=== PATIENT | male | born 1945 | race Caucasian/White ===

== ENCOUNTER 2016-12-25 14:00 | Inpatient (IN) | payer OTHER ==
--- NOTE | 2016-12-24 22:00 | NUR ---
Rounds Patient resting in bed, awake. Denies any acute distress or pain. Breathing even and unlabored. IV site patent/clean/dry. Patient continue to be febrile, medicated patient per MD order and cooling measures taken. Dr. Urban doing rounds on patient. Call light in hand, fall precautions in place. Will continue to monitor. Addendum: 12/26/16 at 0127 by Abhishek Zaidi RN Notes for Date: 12/25/16
[~2016-12-25] VITALS: Ht 170.2 cm; Wt 73.0 kg
[2016-12-25 14:08] VITALS: BP 87/58; PULSE 130; RESP 16; TEMP 98.6; O2SAT 98
--- NOTE | 2016-12-25 14:45 | NUR ---
Pt in ER room 4, report received from TRACEY Coyle. Pt AAOx4, even and non-labored respirations, BBS clear. Pt states that he has been running a fever x 4 weeks every day. states that last fever was at 1300 and states fever was "104." Pt has been taking Tylenol and Benadryl for symptoms. Last dose of Tylenol was at noon today. Pt has multiple myeloma, dx in 2013. Pt takes Pomalyst for cancer. Current temp 99.9. Pt denies c/o pain or discomfort and no needs verbalized at this time.
[2016-12-25 14:48] LABS: BASOPHILS % (AUTO) 0.2 % (0.0-2.0); EOSINOPHILS % (AUTO) 0.8 % (0.0-4.0); HEMATOCRIT 24.3 % (36-54); LYMPHOCYTES # (AUTO) 0.5 K/uL (1.0-5.5); LYMPHOCYTES % (AUTO) 9.2 % (20.5-51.5); MEAN CORPUSCULAR HEMOGLOBIN 31 pg (27-31); MEAN CORPUSCULAR HGB CONC 33 % (32-36); MEAN CORPUSCULAR VOLUME 93 fL (79.0-98.0); MONOCYTES # (AUTO) 0.7 K/uL (0.0-1.0); MONOCYTES % (AUTO) 12.1 % (1.7-9.3); NEUTROPHILS # (AUTO) 4.8 K/uL (1.8-7.7); NEUTROPHILS % (AUTO) 77.7 % (40.0-70.0); PLATELET COUNT (AUTO) 401 K/uL (130-430); RED BLOOD CELL COUNT(AUTO) 2.62 MIL/uL (4.2-6.2); WHITE BLOOD COUNT (AUTO) 5.9 K/uL (4.8-10.8)
--- NOTE | 2016-12-25 14:50 | NUR ---
Dr. Meek at bedside to assess pt.
[2016-12-25 14:56] LABS: INR 1.2 (0.80-1.20)
[2016-12-25 15:04] LABS: ANION GAP 13 (5-15); CALCIUM 8.6 mg/dL (8.4-11.0); CHLORIDE 102 mmol/L (98-107); CREATININE 1.59 mg/dL (0.55-1.30); GLUCOSE 113 mg/dL (70-99); POTASSIUM 3.7 mmol/L (3.5-5.1); SODIUM SERUM 136 mmol/L (136-145); UREA NITROGEN, BLOOD 13 mg/dL (8-21)
[2016-12-25 15:09] LABS: ALANINE AMINOTRANSFERASE 39 U/L (12-78); ASPARTATE AMINOTRANSFERASE 27 U/L (10-37); TOTAL BILIRUBIN 0.4 mg/dL (0.0-1.0); TOTAL PROTEIN, SERUM 8.9 g/dL (6.4-8.3)
--- NOTE | 2016-12-25 15:25 | NUR ---
Pt report given to TRACEY Gonzalez.
[2016-12-25] MEDS ORDERED: NACL 0.9% 1,000 ML IV ONE ×2 (15:30)
[2016-12-25] MEDS ORDERED: HYDR-1189 PO (15:34)
[2016-12-25] MEDS ORDERED: POMA4CAP PO (15:34)
[2016-12-25] MEDS ORDERED: ACET-2165 PO (15:34)
[2016-12-25] MEDS ORDERED: FLUC100T41 PO (15:34)
[2016-12-25] MEDS ORDERED: MECL12.584 PO (15:34)
[2016-12-25] MEDS ORDERED: SIMV20TA2 PO (15:34)
[2016-12-25] MEDS ORDERED: FAMO40TA35 PO (15:34)
[2016-12-25] MEDS ORDERED: TAMS-11 PO (15:34)
[2016-12-25] MEDS ORDERED: CALC-112 PO (15:34)
[2016-12-25] MEDS ORDERED: DIPH25CA83 PO (15:34)
[2016-12-25] MEDS ORDERED: ASPI-1063 PO (15:34)
[2016-12-25] MEDS ORDERED: DEC4 PO (15:34)
--- NOTE | 2016-12-25 15:35 | NUR ---
Medication reconciliation completed with information provided by . Any prior medication reconciliation on file was reviewed and corrected.
[2016-12-25 16:05] LABS: BILIRUBIN,URINE NEGATIVE (NEGATIVE); BLOOD, URINE 1+ (NEGATIVE); CLARITY/URINE SL CLOUDY (CLEAR); COLOR,URINE YELLOW (YELLOW); GLUCOSE,URINE NEGATIVE (NEGATIVE); KETONES,URINE NEGATIVE (NEGATIVE); LEUKOCYTE ESTERASE ,URINE NEGATIVE (NEGATIVE); NITRITE, URINE NEGATIVE (NEGATIVE); PH,URINE 5.5 (5.0-8.0); PROTEIN URINE 1+ (NEGATIVE); UROBILINOGEN,URINE 0.2 (0.2-1.0)
[2016-12-25 16:31] LABS: BACTERIA,URINE RARE /HPF (None Seen); FINE GRANULAR CASTS,URINE 0-10 /LPF (None Seen); WBC,URINE 0-3 /HPF (0-3)
--- NOTE | 2016-12-25 16:39 | NUR ---
Dr. Meek at bedside updating patient and family
--- NOTE | 2016-12-25 18:05 | NUR ---
Patient will be admitted to care of Dr. Urban. Admitted to tele unit. Will go to room 135/123. Belongings list completed. Summary report printed. Report given to TRACEY Smith.
--- NOTE | 2016-12-25 18:07 | NUR ---
ADMISSION NOTE Received patient from ER via gurney. Patient admitted with diagnosis of Sepsis. Patient is awake, alert, oriented X 3. Patient oriented to hospital room, call light, toileting, pain management and safety-teach back done. Patient informed that Les will be his nurse and that their room number is 123 A. Personal belongings checked and Belongings List documented. Call light within reach.
[2016-12-25 18:18] VITALS: BP 133/68; PULSE 105; RESP 18; TEMP 97.8; O2SAT 98
--- NOTE | 2016-12-25 18:35 | NUR ---
Consultation Paged Reason for consultation: Unknown Source of Infection Was consult called: Yes Person who was notified: Shahrzad Consulting Physician: Dr Fair; Dr Aparicio is on-call for Dr Fair Underwriting Clerk Specialty: ID Underwriting Clerk
--- NOTE | 2016-12-25 18:41 | NUR ---
FAMILY AT BEDSIDE. WILL ENDORSE FOR NOC NURSE.
[2016-12-25] MEDS ORDERED: LEVOFLOXACIN 500 MG/D5W 100 ML IV ONE (19:00)
[2016-12-25 20:00] VITALS: BP 137/70; PULSE 105; RESP 18; TEMP 99.3; O2SAT 99
--- NOTE | 2016-12-25 20:00 | NUR ---
Initial Notes Received patient laying in bed, awake, alert, oriented, family at bedside. Patient denies any acute distress or pain at this time. Patient exhibiting fever, patient stated he's been febrile on/off for 2months, MD aware. Breathing even and unlabored on room air. IV site patent/clean/dry. Needs addressed. Educated patient and family on use of call light for assistance and fall precautions, all verbalized understanding. Call light in hand, will continue to monitor.
[2016-12-25] MEDS ORDERED: HYDROcodone/ACETAMIN 5-325 MG TAB (NORCO/ VICODIN) PO PRN (21:30)
[2016-12-25] MEDS ORDERED: ACETAMINOPHEN 500 MG TABLET PO PRN (21:45)
[2016-12-25] MEDS: VANCOMYCIN HCL 1,250 MG in NS 250 ML IV SCH (21:47)
[2016-12-25] MEDS: NACL 0.9% 1,000 ML IV SCH (21:49)
[2016-12-25] MEDS: ACETAMINOPHEN 325 MG TABLET PO PRN (21:58)
[2016-12-25] MEDS: MICAFUNGIN SODIUM 100 MG in NS 100 ML IV SCH (23:20)
[2016-12-26] VITALS: BP 132/68; PULSE 78; RESP 18; TEMP 101.6; O2SAT 98
--- NOTE | 2016-12-26 | NUR ---
Rounds Patient resting in bed with eyes closed, easily aroused upon nurse entering room. Patient denies any acute distress or pain. Breathing even and unlabored. IV site patent/clean/dry. Patient remains febrile, cooling measures continued, MD aware. Call light in hand, will continue to monitor for changes and safety.
--- NOTE | 2016-12-26 02:00 | NUR ---
Rounds Patient resting in bed, awake. Patient denies any acute distress or pain. Breathing even and unlabored. IV site patent/clean/dry. Assisted patient to bathroom for BM. Needs addressed. Call light in hand, fall precautions in place. Will continue to monitor.
[2016-12-26 04:00] VITALS: BP 132/76; PULSE 68; RESP 17; TEMP 99.3; O2SAT 98
--- NOTE | 2016-12-26 04:00 | NUR ---
Rounds Patient resting in bed with eyes closed, easily aroused upon nurse entering room. Patient denies any acute distress or pain. Vital signs stable. Breathing even and unlabored. IV site patent/clean/dry. Call light in hand, fall precautions in place. Will continue to monitor.
--- NOTE | 2016-12-26 06:35 | NUR ---
Closing Notes Patient resting in bed with eyes closed, easily aroused. Patient denies any acute distress or pain at this time. Breathing even and unlabored on room air. IV site patent/clean/dry, no S/S infection/infiltration noted. Needs addressed throughout shift. Call light in hand, fall precautions in place. Will continue to monitor for changes and safety, and endorse all patient care/needs to oncoming nurse.
--- NOTE | 2016-12-26 07:10 | NUR ---
NRSG: RECEIVED PATIENT, AWAKE,ALERT AND ORIENTED X 4. RESPIRATION EVEN AND UNLABORED. AFEBRILE. , LUNGS CLEAR BILATERAL. ON ROOM AIR AND O2 SAT. 96%, . HAD IVF ON PROGRESS AND THE SITE ON LEFT FOREARM INTACT AND INPLACED , NO S/S OF INFILTRATION. NO C/O OF PAIN .CALL LIGHT WITHIN REACH.
[2016-12-26 07:25] LABS: BASOPHILS % (AUTO) 0.3 % (0.0-2.0); EOSINOPHILS # (AUTO) 0.1 K/uL (0.0-0.4); EOSINOPHILS % (AUTO) 1.4 % (0.0-4.0); LYMPHOCYTES # (AUTO) 0.5 K/uL (1.0-5.5); LYMPHOCYTES % (AUTO) 9.9 % (20.5-51.5); MEAN CORPUSCULAR HEMOGLOBIN 31 pg (27-31); MEAN CORPUSCULAR HGB CONC 33 % (32-36); MEAN CORPUSCULAR VOLUME 93 fL (79.0-98.0); MONOCYTES # (AUTO) 0.8 K/uL (0.0-1.0); MONOCYTES % (AUTO) 16.4 % (1.7-9.3); NEUTROPHILS # (AUTO) 3.3 K/uL (1.8-7.7); PLATELET COUNT (AUTO) 317 K/uL (130-430); RED BLOOD CELL COUNT(AUTO) 2.13 MIL/uL (4.2-6.2); RED CELL DISTRIBUTION WIDTH 16.5 % (9.0-15.0); WHITE BLOOD COUNT (AUTO) 4.7 K/uL (4.8-10.8)
[2016-12-26 07:30] LABS: ALANINE AMINOTRANSFERASE 30 U/L (12-78); ALBUMIN 1.6 g/dL (3.4-4.8); ANION GAP 12 (5-15); ASPARTATE AMINOTRANSFERASE 22 U/L (10-37); CHLORIDE 106 mmol/L (98-107); CREATININE 1.28 mg/dL (0.55-1.30); GLUCOSE 103 mg/dL (70-99); POTASSIUM 3.7 mmol/L (3.5-5.1); SODIUM SERUM 138 mmol/L (136-145); TOTAL BILIRUBIN 0.4 mg/dL (0.0-1.0); TOTAL PROTEIN, SERUM 7.5 g/dL (6.4-8.3); UREA NITROGEN, BLOOD 10 mg/dL (8-21)
--- NOTE | 2016-12-26 07:30 | NUR ---
RESULT: LAB ([facility]) CALLED FOR HGB &HEMATOCRIT RESULT . AND DR. RENEE WAS CALLED AT 0745 AND 0815 . WAITING FOR THE RETURN CALL AND CALLED BACK AT 0830 WITH NEW ORDERS.
[2016-12-26 07:32] LABS: HEMATOCRIT 19.8 % (36-54); HEMOGLOBIN 6.5 g/dL (14.0-18.0)
[2016-12-26 08:00] VITALS: BP 121/63; PULSE 115; RESP 18; TEMP 98.9; O2SAT 96
--- NOTE | 2016-12-26 09:39 | NUR ---
ROUNDS: SEEN AND EXAMINED BY DR. RENEE WITH NEW ORDERS.
[2016-12-26] MEDS: ASPIRIN 81 MG TABLET(ECOTRIN) PO SCH (10:02)
[2016-12-26] MEDS: FLUCONAZOLE 100 MG TABLET (DIFLUCAN) PO SCH (10:02)
[2016-12-26] MEDS: TAMSULOSIN HCL 0.4 MG CAP PO SCH ×2 (10:03→20:47)
[2016-12-26] MEDS: NAPROXEN 250 MG TABLET PO SCH ×2 (10:03→20:48)
[2016-12-26] MEDS: FAMOTIDINE 20 MG TABLET PO SCH (10:05)
[2016-12-26] MEDS: NACL 0.9% 1,000 ML IV SCH ×2 (10:08→14:00)
[2016-12-26] MEDS: ACETAMINOPHEN 325 MG TABLET PO PRN ×2 (11:26→23:31)
--- NOTE | 2016-12-26 11:26 | NUR ---
TEMP: TYLENOL 650 MG PO GIVEN FOR TEMP 101.2 . COOLING MEASURE PROVIDED. ICE PACK TO ARMPIT AND GROIN APPLIED.
[2016-12-26 12:22] VITALS: BP 121/70; PULSE 116; RESP 17; TEMP 101.2; O2SAT 98
--- NOTE | 2016-12-26 12:26 | NUR ---
TEMP: 99.8 RECHECKED
--- NOTE | 2016-12-26 13:25 | NUR ---
BLOOD TRANSFUSION: IST UNIT OF BLOOD TRANSFUSION STARTED AND CHECKED BY 2 LICENSE AT THE BEDSIDE . PRIOR V/S TAKEN AND RECORDED TO BLOOD TRANSFUSION SHEET.
--- NOTE | 2016-12-26 13:40 | NUR ---
POST 15 MIN. BLOOD TRANSFUSION: V/S TAKEN POST 15 MIN. V/S TAKEN AND RECORDED ON THE BLOOD TRANSFUSION SHEET. NO BLOOD TRANSFUSION REACTION NOTED. WILL CONTINUE TO MONITOR.
--- NOTE | 2016-12-26 14:00 | NUR ---
ACTIVITY: RESTING ON BED AND FAMILY AT THE BEDSIDE. NO PAIN , NO FEVER. CALL LIGHT WITHIN REACH.
--- NOTE | 2016-12-26 16:00 | NUR ---
ACTIVITY: STILL ON BLOOD TRANSFUSION AND NO PAIN AND CALL LIGHT WITHIN REACH.
[2016-12-26 16:12] VITALS: BP 126/57; PULSE 74; RESP 18; TEMP 98.4; O2SAT 98
--- NOTE | 2016-12-26 17:30 | NUR ---
BLOOD: IST UNIT BLOOD TRANSFUSION FINFISHED WITH NO BLOOD TRANSFUSION REACTION. V/S RECORDED ON BLOOD TRANSFUSION SHEET.
--- NOTE | 2016-12-26 17:55 | NUR ---
BLOOD: 2ND UNIT PRBC STARTED BY LIO -CHARGE NURSE, V/S TAKEN AND RECORDED ON THE BLOOD TRANSFUSION RECORD.
--- NOTE | 2016-12-26 18:10 | NUR ---
V/S: SET OF V/S POST 15 MINUTES DONE AND RECORDED ON THE BLOOD TRANSFUSION RECORD. NO BLOOD TRANSFUSION REACTION .WILL CONTINUE TO ASSESS PATIENT WHILE ON BLOOD TRANSFUSION
--- NOTE | 2016-12-26 19:50 | NUR ---
CLOSING: GAVE REPORT AT THE BEDSIDE TO NIGHT NURSE AND PATIENT IS STILL ON BLOOD TRANSFUSION OF THE 2ND UNIT, AWAKE,ALERT AND ORIENTED, NO BLOOD REACTION ,NO FEVER. FAMILY AT THE BEDSIDE. CALL LIGHT WITHIN REACH.
[2016-12-26 20:00] VITALS: BP 133/61; PULSE 77; RESP 20; TEMP 98.2; O2SAT 96
--- NOTE | 2016-12-26 20:00 | NUR ---
Initial Notes Received patient laying in bed, awake, alert, oriented, family at bedside. Patient currently receiving 2nd unit of PRBC. Patient denies any acute distress or pain at this time. Vital signs stable. Breathing even and unlabored on room air. IV site patent/clean/dry. Needs addressed. Educated patient and family on use of call light for assistance and fall precautions, all verbalized understanding. Call light in hand, will continue to monitor.
--- NOTE | 2016-12-26 20:40 | NUR ---
2nd Unit PRBC Completed PRBC completed, no adverse reaction noted. Vital signs stable. Patient denies any distress. Will continue to monitor.
[2016-12-26] MEDS: LEVOFLOXACIN 250 MG/D5W 50 ML IV SCH (20:47)
[2016-12-26] MEDS: DIPHENHYDRAMINE HCL 25 MG CAPSULE PO SCH (20:48)
[2016-12-26] MEDS: SIMVASTATIN 20 MG TABLET PO SCH (20:48)
--- NOTE | 2016-12-26 22:00 | NUR ---
Rounds and New IV Patient resting in bed, awake. Denies any acute distress or pain at this time. Breathing even and unlabored. Current IV site occluded at times, discontinued. New IV sites started left forearm #22's x2, good blood return noted, patent/clean/dry. ABX restarted. Needs addressed, call light in hand. Will continue to monitor.
[2016-12-26] MEDS: MICAFUNGIN SODIUM 100 MG in NS 100 ML IV SCH (22:08)
[2016-12-26] MEDS ORDERED: VANCOMYCIN HCL 1000 MG/VIAL IV ONE (22:55)
[2016-12-26] MEDS ORDERED: VANCOMYCIN HCL 500 MG/VIAL IV ONE (22:56)
[2016-12-26] MEDS: VANCOMYCIN HCL 1,250 MG in NS 250 ML IV SCH (23:13)
[2016-12-27] VITALS (7 sets, daily range): BP systolic 143–153; BP diastolic 68–88; PULSE 80–99; RESP 16–18; TEMP 96.8–100; O2SAT 95–99; Ht 170.2 cm; Wt 73.0 kg
--- NOTE | 2016-12-27 | NUR ---
Rounds and Fever Patient resting in bed with eyes closed, easily aroused. Patient denies any acute distress or pain at this time. Breathing even and unlabored. IV sites patent/clean/dry. Medicated patient for elevated temperature per MD orders. Call light in hand, fall precautions in place. Will continue to monitor.
--- NOTE | 2016-12-27 02:00 | NUR ---
Rounds Patient resting in bed with eyes closed. No acute distress noted. Breathing even and unlabored. IV site patent/clean/dry. Call light in hand, fall precautions in place. Will continue to monitor.
--- NOTE | 2016-12-27 04:00 | NUR ---
Rounds Patient resting in bed with eyes closed. No acute distress noted. Breathing even and unlabored. Will continue to monitor.
[2016-12-27] MEDS: NACL 0.9% 1,000 ML IV SCH ×3 (05:42→20:00)
--- NOTE | 2016-12-27 06:43 | NUR ---
Closing Notes Patient resting in bed with eyes closed, easily aroused. Patient denies any distress or pain at this time. Breathing even and unlabored. IV site patent/clean/dry, no S/S infection/infiltration noted. Vital signs stable. Needs addressed throughout shift. Call light in hand, fall precautions in place. Will continue to monitor for changes and safety, and endorse all patient care/needs to oncoming nurse.
[2016-12-27 06:54] LABS: ALANINE AMINOTRANSFERASE 37 U/L (12-78); ALBUMIN 1.6 g/dL (3.4-4.8); ANION GAP 9 (5-15); ASPARTATE AMINOTRANSFERASE 33 U/L (10-37); CALCIUM 8.3 mg/dL (8.4-11.0); CHLORIDE 111 mmol/L (98-107); CREATININE 1.11 mg/dL (0.55-1.30); GLUCOSE 101 mg/dL (70-99); POTASSIUM 3.9 mmol/L (3.5-5.1); SODIUM SERUM 142 mmol/L (136-145); TOTAL BILIRUBIN 0.7 mg/dL (0.0-1.0); TOTAL PROTEIN, SERUM 7.8 g/dL (6.4-8.3); UREA NITROGEN, BLOOD 8 mg/dL (8-21)
[2016-12-27 07:01] LABS: BASOPHILS % (AUTO) 0.2 % (0.0-2.0); EOSINOPHILS # (AUTO) 0.1 K/uL (0.0-0.4); EOSINOPHILS % (AUTO) 3.7 % (0.0-4.0); HEMATOCRIT 24.7 % (36-54); HEMOGLOBIN 8.1 g/dL (14.0-18.0); LYMPHOCYTES # (AUTO) 0.5 K/uL (1.0-5.5); LYMPHOCYTES % (AUTO) 12.7 % (20.5-51.5); MEAN CORPUSCULAR HEMOGLOBIN 30 pg (27-31); MEAN CORPUSCULAR HGB CONC 33 % (32-36); MEAN CORPUSCULAR VOLUME 91 fL (79.0-98.0); MONOCYTES # (AUTO) 0.4 K/uL (0.0-1.0); MONOCYTES % (AUTO) 11.7 % (1.7-9.3); NEUTROPHILS # (AUTO) 2.7 K/uL (1.8-7.7); NEUTROPHILS % (AUTO) 71.7 % (40.0-70.0); PLATELET COUNT (AUTO) 306 K/uL (130-430); RED CELL DISTRIBUTION WIDTH 16.5 % (9.0-15.0); WHITE BLOOD COUNT (AUTO) 3.7 K/uL (4.8-10.8)
--- NOTE | 2016-12-27 07:55 | NUR ---
INITIAL NOTE Received pt in bed, no s/s of distress or sob noted, pt has no c/o pain at this time, pt in stable condition. Pt alert and oriented x4. Bed at lowest position, call light within reach, will continue to monitor pt for any changes, fall precautions in place.
[2016-12-27] MEDS ORDERED: DECADRON 4 MG TABLET PO SCH (09:00)
[2016-12-27] MEDS: ASPIRIN 81 MG TABLET(ECOTRIN) PO SCH (09:18)
[2016-12-27] MEDS: FLUCONAZOLE 100 MG TABLET (DIFLUCAN) PO SCH (09:18)
[2016-12-27] MEDS: TAMSULOSIN HCL 0.4 MG CAP PO SCH ×2 (09:18→21:27)
[2016-12-27] MEDS: FAMOTIDINE 20 MG TABLET PO SCH (09:18)
[2016-12-27] MEDS: NAPROXEN 250 MG TABLET PO SCH ×2 (09:19→21:27)
--- NOTE | 2016-12-27 10:00 | NUR ---
CONSULT ID SEPSIS DR BIANCHI [phone] S/W [facility] OFFICE @ [id number]
--- NOTE | 2016-12-27 10:23 | NUR ---
Rounds Pt in bed, no s/s of distress or sob noted, pt has no c/o pain at this time, pt in stable condition, pt resting comfortably, will continue to monitor pt for any changes.
[2016-12-27] MEDS ORDERED: DIATR MEGLU/DIATRIZ SOD 30 ML SOLUTION PO ONE (10:54)
--- NOTE | 2016-12-27 14:30 | NUR ---
Sputum Was notified by lab that sputum culture sent was contaminated, new order for sputum culture and informed pt that a new sputum needs to be provided as the sputum provided was contaminated, pt verbalized understanding. Specimen cup left at bedside with pt.
[2016-12-27] MEDS: LEVOFLOXACIN 250 MG/D5W 50 ML IV SCH (18:14)
[2016-12-27] MEDS: VANCOMYCIN HCL 1,250 MG in NS 250 ML IV SCH (19:14)
--- NOTE | 2016-12-27 19:45 | NUR ---
PM ASSESSMENT PT. A/OX4, VITAL SIGNS STABLE, PT. IS AFEBRILE, NO DISTRESS NOTED, DENIES PAIN, UPDATED WITH PLAN OF CARE, ENCOURAGED PT. TO USE CALL LIGHT FOR ASSISTANCE, CALL LIGHT WITHIN REACH, WILL CONTINUE TO MONITOR.
[2016-12-27] MEDS: DIPHENHYDRAMINE HCL 25 MG CAPSULE PO SCH (21:27)
[2016-12-27] MEDS: MICAFUNGIN SODIUM 100 MG in NS 100 ML IV SCH (21:27)
[2016-12-27] MEDS: SIMVASTATIN 20 MG TABLET PO SCH (21:27)
--- NOTE | 2016-12-27 21:30 | NUR ---
RN ROUNDS PT. AMBULATED TO THE BATHROOM WITH SPECIAL FORCES SPECIALIST, NOTED WITH SLOW, STEADY GAIT. ASSISTED SAFELY BACK INTO BED. PT. TOLERATED ACTIVITY WELL.
--- NOTE | 2016-12-27 23:13 | NUR ---
RN ROUNDS PT. RESTING QUIETLY, VITAL SIGNS STABLE, NO DISTRESS NOTED, DENIES PAIN, CALL LIGHT WITHIN REACH, WILL CONTINUE TO MONITOR.
[2016-12-28] VITALS (7 sets, daily range): BP systolic 148–156; BP diastolic 71–92; PULSE 63–92; RESP 16–20; TEMP 96.9–99; O2SAT 94–99
--- NOTE | 2016-12-28 01:15 | NUR ---
RN ROUNDS PT. RESTING QUIETLY, VITAL SIGNS STABLE, NO DISTRESS NOTED, DENIES PAIN, CALL LIGHT WITHIN REACH, WILL CONTINUE TO MONITOR.
--- NOTE | 2016-12-28 03:00 | NUR ---
RN ROUNDS PT. RESTING QUIETLY, VITAL SIGNS STABLE, NO DISTRESS NOTED, DENIES PAIN, CALL LIGHT WITHIN REACH, WILL CONTINUE TO MONITOR.
--- NOTE | 2016-12-28 05:00 | NUR ---
RN ROUNDS PT. RESTING QUIETLY, VITAL SIGNS STABLE, NO DISTRESS NOTED, DENIES PAIN, CALL LIGHT WITHIN REACH, WILL CONTINUE TO MONITOR.
[2016-12-28] MEDS: NACL 0.9% 1,000 ML IV SCH ×2 (06:29→16:50)
--- NOTE | 2016-12-28 06:30 | NUR ---
AMBULATE TO BATHROOM ASSISTED PT. TO AMBULATE TO BATHROOM, NOTED WITH SLOW, STEADY GAIT, PT. ABLE TO VOID URINE AND HAVE A BOWEL MOVEMENT. ASSISTED SAFELY BACK INTO BED, PT. TOLERATED ACTIVITY WELL, IV ACCESS PATENT AND BENIGN.
--- NOTE | 2016-12-28 08:38 | NUR ---
AM ROUNDS Patient received, alert awake and oriented x4. VSS. Patient denies pain at this time. Patient afebrile. IV site patent intact and infusing fluids as ordered. Patient tolerated breakfast well, denies nausea and vomiting at this time. Patient able to ambulate to bathroom, voiding without difficulty. Plan of care discussed, patient verbalized understanding. No further needs at this time. Safety and fall precautions in place, call light within reach, will continue to monitor.
[2016-12-28] MEDS: FAMOTIDINE 20 MG TABLET PO SCH (08:52)
[2016-12-28] MEDS: ASPIRIN 81 MG TABLET(ECOTRIN) PO SCH (08:53)
[2016-12-28] MEDS: TAMSULOSIN HCL 0.4 MG CAP PO SCH ×2 (08:53→21:34)
[2016-12-28] MEDS: NAPROXEN 250 MG TABLET PO SCH ×2 (08:53→21:33)
--- NOTE | 2016-12-28 09:25 | NUR ---
Patient ambulated to bathroom, minimal assistance. Encouraged to call for assistance, patient verbalized understanding. Will continue to monitor. Safety and fall precautions in place, call light within reach, side rails upx3.
--- NOTE | 2016-12-28 10:05 | NUR ---
ROUNDS Patient ambulated to bathroom, gait steady. Patient denies pain at this time. Family at bedside. No further needs at this time. Safety and fall precautions in place, call light within reach. Will continue to monitor.
--- NOTE | 2016-12-28 12:12 | NUR ---
ROUNDS/WOUND CARE Patient resting in bed at this time. Patient stated he had a wound on his buttock that was "irritating" him. Verified from patient and family that verified wound was present on admission. Pictures taken and in chart. WOUND CARE Cleansed with normal saline, pat dry, barrier cream and foam dressing applied.
--- NOTE | 2016-12-28 14:34 | NUR ---
ROUNDS Educated patient on importance of repositioning, patient verbalized understanding and returned demonstration. IVF infusing as ordered. Patient denies pain at this time. Safety and fall precautions in place, call light within reach. Will continue to monitor. Family at bedside.
[2016-12-28] MEDS: LEVOFLOXACIN 250 MG/D5W 50 ML IV SCH (18:35)
--- NOTE | 2016-12-28 19:45 | NUR ---
PM NOTE: PATIENT ALERT. DENIES PAIN. RESPIRATIONS ARE EVEN/UNLABORED TO AUSCULTATION. UP TO BATHROOM WITH ASSIST. PASSED FLATUS NO BM AT THIS TIME. FAMILY MEMBER AT BEDSIDE. CALL LIGHT WITHIN REACH.
[2016-12-28] MEDS: VANCOMYCIN HCL 1,250 MG in NS 250 ML IV SCH (19:56)
[2016-12-28] MEDS: SIMVASTATIN 20 MG TABLET PO SCH (21:33)
[2016-12-28] MEDS: DIPHENHYDRAMINE HCL 25 MG CAPSULE PO SCH (21:33)
--- NOTE | 2016-12-28 22:25 | NUR ---
rounds: Aroused easily with verbal stimuli. Denies discomfort. Gait steady with ambulation to bathroom and back to bed. Bed in low position. Call light in reach.
[2016-12-28] MEDS: MICAFUNGIN SODIUM 100 MG in NS 100 ML IV SCH (22:49)
--- NOTE | 2016-12-29 00:25 | NUR ---
rounds: Restful. No s/s of distress. Respirations unlabored and regular. Call light within reach.
[2016-12-29 01:23] VITALS: BP 155/96; PULSE 73; RESP 18; TEMP 98.7; O2SAT 98
--- NOTE | 2016-12-29 02:25 | NUR ---
Rounds: Up to bathroom to void. Voiding without difficulty. Gait remains steady. Denies discomfort at this time. Back to bed. Call light within reach.
[2016-12-29 04:00] VITALS: BP 154/89; PULSE 77; RESP 17; TEMP 98; O2SAT 97
--- NOTE | 2016-12-29 04:25 | NUR ---
Rounds: No s/s of discomfort while resting in bed. Respirations remain regular and unlabored. Bed in low position. Call light within reach.
[2016-12-29] MEDS: NACL 0.9% 1,000 ML IV SCH (06:15)
--- NOTE | 2016-12-29 06:28 | NUR ---
closing note: awake and alert. Denies pain. Voided 4x throughout shift. Call light within reach and bed in low position.
[2016-12-29 08:00] VITALS: BP 146/86; PULSE 96; RESP 18; TEMP 97.8; O2SAT 96
--- NOTE | 2016-12-29 08:18 | NUR ---
OPENING NOTE PATIENT IS SITTING UP EATING BREAKFAST. DENIES ANY PAIN, NO SOB OR DISTRESS. CALL LIGHT WITHIN REACH. TOLERATING DIET WELL.
[2016-12-29] MEDS: NAPROXEN 250 MG TABLET PO SCH (08:34)
[2016-12-29] MEDS: FAMOTIDINE 20 MG TABLET PO SCH (08:34)
[2016-12-29] MEDS: ASPIRIN 81 MG TABLET(ECOTRIN) PO SCH (08:34)
[2016-12-29] MEDS: TAMSULOSIN HCL 0.4 MG CAP PO SCH (08:34)
--- NOTE | 2016-12-29 09:50 | NUR ---
DR LAM IN TO SEE PATIENT. DC HOME AFTER BONE SCAN
[2016-12-29 10:14] LABS: BASOPHILS % (AUTO) 0.1 % (0.0-2.0); EOSINOPHILS % (AUTO) 0.1 % (0.0-4.0); HEMATOCRIT 26.7 % (36-54); HEMOGLOBIN 8.9 g/dL (14.0-18.0); LYMPHOCYTES # (AUTO) 0.5 K/uL (1.0-5.5); LYMPHOCYTES % (AUTO) 5.7 % (20.5-51.5); MEAN CORPUSCULAR HEMOGLOBIN 31 pg (27-31); MEAN CORPUSCULAR HGB CONC 33 % (32-36); MEAN CORPUSCULAR VOLUME 93 fL (79.0-98.0); MONOCYTES # (AUTO) 0.6 K/uL (0.0-1.0); MONOCYTES % (AUTO) 7.1 % (1.7-9.3); NEUTROPHILS # (AUTO) 7.4 K/uL (1.8-7.7); PLATELET COUNT (AUTO) 407 K/uL (130-430); RED BLOOD CELL COUNT(AUTO) 2.89 MIL/uL (4.2-6.2); RED CELL DISTRIBUTION WIDTH 15.9 % (9.0-15.0); WHITE BLOOD COUNT (AUTO) 8.5 K/uL (4.8-10.8)
[2016-12-29 11:11] VITALS: BP 153/86; PULSE 82; RESP 18; TEMP 97.4; O2SAT 99
[2016-12-29 12:10] VITALS: BP 136/74; PULSE 90; RESP 18; TEMP 98; O2SAT 96
--- NOTE | 2016-12-29 12:22 | NUR ---
DR DUNCAN IN TO SEE PATIENT. VALATREX PRESCRIPTION WRITTEN. INSTRUCTIONS ON ALL PRESCRIBED MEDICATIONS AND DISCHARGE CARE PLAN GIVEN TO PATIENT, SPOUSE AND SON. VERBALIZED UNDERSTANDING. IV DC'D AND PRESSURE DRESSING APPLIED. PATIENT DRESSED IN HOME CLOTHING. ALL PERSONAL BELONGINGS ACCOUNTED FOR AND SENT HOME WITH PATIENT.
[2016-12-29 14:10] LABS: % FREE PSA 21.5 % (.); FREE PSA 0.56 ng/mL; PROSTATE SPECIFIC AG TOTAL 2.6 ng/mL (0.0-4.0)
[2017-01-02 09:12] LABS: COCCIDIOIDES AB COMPLEMENT FIX Negative (Neg:<1:2)
--- NOTE | 2017-01-04 14:07 | NUR ---
Discharge Follow Up Phone Call SYSTEMS INTEGRATION ENGINEER phoned patient, , and spoke with patient's , Gina. Gina stated that patient was feeling better and had started back on his prednisone. Patient also filled the prescriptions given to him and is taking them as directed. Patient attended his follow up appointment with his PCP, Dr Okeefe, on 12/31 and with his oncologist, Dr Craft, on 01/03/17. Discussed the difficulties managing multiple myeloma. No other questions or concerns.
[2017-01-12 14:19] LABS: CRYPTOCOCCUS AG, SERUM NEGATIVE (NEGATIVE)
== END 2016-12-29 14:31 | disposition home or self-care (01) | DRG 871 ==
LOC: SED 14:00 → SMU 17:47 → STU 18:05 → SMU 12-26 22:13
PROC: 30233N1 Transfusion of Nonautologous Red Blood Cells into Peripheral Vein, Percutaneous Approach (ICD-10-PCS; principal; 2016-12-26)
DX: A41.9 Sepsis, unspecified organism (principal); J18.9 Pneumonia, unspecified organism; C90.00 Multiple myeloma not having achieved remission; D63.0 Anemia in neoplastic disease; E78.5 Hyperlipidemia, unspecified; I10 Essential (primary) hypertension; B95.8 Unspecified staphylococcus as the cause of diseases classified elsewhere; Z88.0 Allergy status to penicillin; Z85.820 Personal history of malignant melanoma of skin; Z79.899 Other long term (current) drug therapy
CPT/HCPCS: 36415; 71010; 71250-TC; 78306; 80053; 81000-TC; 83605; 83880; 84153; 84484; 85025; 85610-TC; 85651-TC; 86480; 86635; 86694; 86886; 86900; 86901; 86920; 87040-TC; 87070-TC; 87205-TC; 87385; 87497; 87899; 93005; 93306; 96360; 96361; 99285; A9503; J1956; J2248; J3370; J7030; J7040; J7050; J8540; P9021; Q0163; Q9964

== ENCOUNTER 2017-01-20 12:04 | Inpatient (IN) | payer OTHER ==
[~2017-01-20] VITALS: Ht 172.7 cm; Wt 71.7 kg
[2017-01-20 12:04] VITALS: BP 116/64; PULSE 110; RESP 24; TEMP 96.8; O2SAT 98
[~2017-01-20 12:04] MED LIST: ACET-2165 PO; ASPI-1063 PO; CALC-112 PO; DEC4 PO; DIPH25CA83 PO; FAMO40TA35 PO; FLUC100T41 PO; HYDR-1189 PO; MECL12.584 PO; POMA4CAP PO; SIMV20TA2 PO; TAMS-11 PO
--- NOTE | 2017-01-20 12:04 | NUR ---
JOSEPH ALMARAZ from home. Placed in room 06. Placed on groundwater monitoring technician, blood pressure machine and pulse oximeter. To gown for exam. Side rails up.
--- NOTE | 2017-01-20 12:10 | NUR ---
Dr. Recinos at bedside for evaluation
[2017-01-20] MEDS ORDERED: NS 500 ML IV ONE (12:30)
[2017-01-20 12:47] LABS: BASOPHILS % (AUTO) 0.4 % (0.0-2.0); EOSINOPHILS # (AUTO) 0.2 K/uL (0.0-0.4); EOSINOPHILS % (AUTO) 4.6 % (0.0-4.0); HEMATOCRIT 30.4 % (36-54); HEMOGLOBIN 10.3 g/dL (14.0-18.0); LYMPHOCYTES # (AUTO) 0.3 K/uL (1.0-5.5); LYMPHOCYTES % (AUTO) 6.3 % (20.5-51.5); MEAN CORPUSCULAR HEMOGLOBIN 30 pg (27-31); MEAN CORPUSCULAR HGB CONC 34 % (32-36); MEAN CORPUSCULAR VOLUME 90 fL (79.0-98.0); MONOCYTES # (AUTO) 0.4 K/uL (0.0-1.0); MONOCYTES % (AUTO) 9.6 % (1.7-9.3); NEUTROPHILS # (AUTO) 3.3 K/uL (1.8-7.7); NEUTROPHILS % (AUTO) 79.1 % (40.0-70.0); PLATELET COUNT (AUTO) 298 K/uL (130-430); RED BLOOD CELL COUNT(AUTO) 3.39 MIL/uL (4.2-6.2); RED CELL DISTRIBUTION WIDTH 16.7 % (9.0-15.0); WHITE BLOOD COUNT (AUTO) 4.2 K/uL (4.8-10.8)
[2017-01-20 13:00] LABS: INR 1.1 (0.80-1.20); PROTHROMBIN TIME 11.7 SECS (9.5-12.5)
[2017-01-20 13:04] LABS: ANION GAP 8 (5-15); CALCIUM 8.1 mg/dL (8.4-11.0); CHLORIDE 104 mmol/L (98-107); CREATININE 1.21 mg/dL (0.55-1.30); GLUCOSE 117 mg/dL (70-99); SODIUM SERUM 134 mmol/L (136-145); UREA NITROGEN, BLOOD 30 mg/dL (8-21)
[2017-01-20 13:06] LABS: POTASSIUM 4.4 mmol/L (3.5-5.1)
--- NOTE | 2017-01-20 13:18 | NUR ---
Pt placed on bedpan with watery stool. Bottom cleansed, clean chux placed. Redness noted to sacral area. aware.
[2017-01-20 13:20] LABS: ALANINE AMINOTRANSFERASE 75 U/L (12-78); ALBUMIN 2.5 g/dL (3.4-4.8); ASPARTATE AMINOTRANSFERASE 31 U/L (10-37); FREE T4 (FREE THYROXINE) 1.1 ng/dL (0.6-1.6); TOTAL BILIRUBIN 0.4 mg/dL (0.0-1.0); TOTAL PROTEIN, SERUM 8.4 g/dL (6.4-8.3)
[2017-01-20 13:22] LABS: ALCOHOL, BLOOD < 3 mg/dL (<10)
--- NOTE | 2017-01-20 13:30 | NUR ---
Back from radiology, tolerated well.
--- NOTE | 2017-01-20 14:30 | NUR ---
Patient is at rest in bed asleep. Patient awoken to check VS, states he feels ok.
[2017-01-20] MEDS ORDERED: LEVOFLOXACIN 500 MG/D5W 100 ML IV ONE (14:45)
--- NOTE | 2017-01-20 14:56 | NUR ---
Telemetry strip printed, interpreted as SINUS RHYTHM at 95 bpm, and placed on the chart.
--- NOTE | 2017-01-20 15:12 | NUR ---
# 14 FR In and Out catheter with use of sterile technique. Immediate return of 200 ml dark yellow urine noted. Urine sample collected and sent to lab. Pt tolerated procedure well. Patient unable to toilet self.
--- NOTE | 2017-01-20 15:16 | NUR ---
Patient will be admitted to care of Dr. Hall. Admitted to tele unit. Will go to room 131. Summary report printed. Report given to RN. Transfer to tele via ACLS protocol. Licensed nurse present. IV present no signs or symptoms of infiltration.
--- NOTE | 2017-01-20 15:30 | NUR ---
ADMIT NOTE Received pt from ER to the floor with a diagnosis of RULE OUT SEPSIS. Admission process initiated. patient oriented to pain management, safety and call light-teach back done.
[2017-01-20 15:35] VITALS: BP 114/65; PULSE 82; RESP 18; TEMP 98.5; O2SAT 98
[2017-01-20 15:53] LABS: BILIRUBIN,URINE NEGATIVE (NEGATIVE); BLOOD, URINE NEGATIVE (NEGATIVE); CLARITY/URINE SL HAZY (CLEAR); COLOR,URINE YELLOW (YELLOW); GLUCOSE,URINE NEGATIVE (NEGATIVE); KETONES,URINE NEGATIVE (NEGATIVE); LEUKOCYTE ESTERASE ,URINE NEGATIVE (NEGATIVE); NITRITE, URINE NEGATIVE (NEGATIVE); PROTEIN URINE TRACE (NEGATIVE); UROBILINOGEN,URINE 0.2 (0.2-1.0)
[2017-01-20 16:06] VITALS: BP 114/65; PULSE 89; RESP 18; TEMP 98.5; O2SAT 98
[2017-01-20 16:19] LABS: BARBITURATE, URINE NEGATIVE (NEG <=200); BENZODIAZEPINE, URINE NEGATIVE (NEG <=150); CANNABINOID, URINE NEGATIVE (NEG <=50); COCAINE, URINE NEGATIVE (NEG <=150); METHAMPHETAMINES SCREEN,URINE NEGATIVE (NEG <=500); OPIATE, URINE NEGATIVE (NEG <=100); PHENCYCLIDINE SCREEN,URINE NEGATIVE (NEG <=25); UR TRICYCLIC ANTIDEPRESSANTS NEGATIVE (NEG <=300); URINE AMPHETAMINE NEGATIVE (NEG <=500); URINE METHADONE NEGATIVE (NEG <=200); URINE OXYCODONE SCREEN NEGATIVE (NEG <=100); URINE PROPOXYPHENE SCREEN NEGATIVE (NEG <=300)
[2017-01-20 16:20] LABS: BACTERIA,URINE FEW /HPF (None Seen); RBC,URINE 0-3 /HPF (0-3)
[2017-01-20 16:21] LABS: MUCUS,URINE 2+ /LPF (None Seen); URINE AMORPHOUS URATE 2+ /HPF (None Seen)
--- NOTE | 2017-01-20 16:45 | NUR ---
DR ALEXANDRE AT BEDSIDE FOR DR LAM, ASSESSED PATIENT AND RECEIVED HISTORY AND PHYSICAL. RECEIVED NEW ORDERS. WILL CARRY OUT. PT IN ED, SAFETY MEASURES IN PLACE, PT ORIENTED TO USE OF CALL LIGHT AND IT IS PLACED WITHIN REACH, FAMILY AT BEDSIDE.
[2017-01-20] MEDS ORDERED: ACETAMINOPHEN 500 MG TABLET PO PRN (17:15)
[2017-01-20] MEDS: NACL 0.9% 1,000 ML IV SCH (18:09)
--- NOTE | 2017-01-20 19:00 | NUR ---
CLOSING NOTE ALL NEEDS ATTENDED TO THROUGH OUT SHIFT. PT LAYING IN BED, AWAKE, ALERT AND ORIENTED, FAMILY AT BEDSIDE, NO COMPLAINT OF PAIN, DISCOMFORT, NAUSEA, VOMITING, PT DID HAVE 3 EPISODES OF DIARRHEA SINCE ADMIT, STOOL SENT TO LAB AWAITING RESULTS. IV INFUSING TO LEFT WRIST AT ORDERED RATE, SITE PATENT AND INTACT, SCDS IN PLACE, SAFETY MEASURES IN PLACE, CALL LIGHT WITHIN REACH, SIDE RAILS UP X2, BED IN LOW POSITION AND LOCKED, WILL ENDORSE CARE TO FOLLOWING SHIFT.
--- NOTE | 2017-01-20 19:23 | NUR ---
OPENING NOTE Pt. and bedside report received from day shift nurse. Pt. is awake, alert and oriented. No s/s of acute distress. IVF infusing as ordered. SCDS present. Angelica Arteaga at bedside providing incontinence care. Family at bedside. Plan of care discussed. Safety and fall precautions are in place. Encouraged pt. and family to use call light for needs. Will continue to monitor.
[2017-01-20 20:00] VITALS: BP 115/65; PULSE 83; RESP 20; TEMP 98; O2SAT 92
[2017-01-20] MEDS: ONDANSETRON HCL 4 MG/2 ML VIAL IVP PRN (20:57)
--- NOTE | 2017-01-20 21:06 | NUR ---
NAUSEA/VOMITING/ALLERGY BAND APPLIED Pt. c/o nausea, vomitted moderate amount of orange-brown emesis. HOB elevated to prevent aspiration. Zofran IVP was administered as ordered PRN. Educated pt. regarding med and s/e. Pt. and family at bedside verbalized understanding. Allergy band applied. Safety and fall precautions in place. Call light to right hand. Will continue to monitor.
--- NOTE | 2017-01-20 22:41 | NUR ---
ROUNDS Pt. is resting quietly in bed with eyes closed. No s/s of acute distress. Pt.'s spouse at bedside with no needs at this time as well. Safety and fall precautions in place. Call light to right hand. Encouraged family to use call light for needs. Will continue to monitor.
[2017-01-20 23:30] VITALS: BP 121/68; PULSE 80; RESP 16; TEMP 98.2; O2SAT 98
--- NOTE | 2017-01-21 | NUR ---
ROUNDS Late entry due to pt. care. Pt. is resting quietly in bed with eyes closed. Respirations are even and unlabored with no s/s of acute distress. Spouse at bedside. Bed alarm on. Will continue to monitor.
--- NOTE | 2017-01-21 03:03 | NUR ---
BEDPAN Pt. was assisted to bedpan by JACOB Pina. Denies any pain or discomfort at this time. Safety and fall precautions in place. Call light on lap. Spouse at bedside. Will continue to monitor.
[2017-01-21] MEDS: NACL 0.9% 1,000 ML IV SCH ×3 (03:36→13:23)
--- NOTE | 2017-01-21 04:38 | NUR ---
ROUNDS Pt. is resting quietly in bed with eyes closed. Respirations are even and unlabored with no s/s of acute distress. Spouse at bedside. Safety and fall precautions in place. Call light to right hand. Will continue to monitor.
[2017-01-21 05:26] VITALS: BP 114/64; PULSE 82; RESP 17; TEMP 97.7
[2017-01-21 06:32] LABS: BASOPHILS % (AUTO) 0.2 % (0.0-2.0); EOSINOPHILS # (AUTO) 0.1 K/uL (0.0-0.4); EOSINOPHILS % (AUTO) 2.2 % (0.0-4.0); HEMATOCRIT 29.4 % (36-54); HEMOGLOBIN 10.2 g/dL (14.0-18.0); LYMPHOCYTES # (AUTO) 0.5 K/uL (1.0-5.5); LYMPHOCYTES % (AUTO) 12.3 % (20.5-51.5); MEAN CORPUSCULAR HEMOGLOBIN 30 pg (27-31); MEAN CORPUSCULAR HGB CONC 35 % (32-36); MEAN CORPUSCULAR VOLUME 88 fL (79.0-98.0); MONOCYTES # (AUTO) 0.6 K/uL (0.0-1.0); MONOCYTES % (AUTO) 13.7 % (1.7-9.3); NEUTROPHILS # (AUTO) 2.9 K/uL (1.8-7.7); NEUTROPHILS % (AUTO) 71.6 % (40.0-70.0); PLATELET COUNT (AUTO) 264 K/uL (130-430); RED BLOOD CELL COUNT(AUTO) 3.34 MIL/uL (4.2-6.2); RED CELL DISTRIBUTION WIDTH 16.9 % (9.0-15.0); WHITE BLOOD COUNT (AUTO) 4.1 K/uL (4.8-10.8)
[2017-01-21] MEDS: ONDANSETRON HCL 4 MG/2 ML VIAL IVP PRN (06:33)
[2017-01-21 06:34] LABS: ALANINE AMINOTRANSFERASE 56 U/L (12-78); ANION GAP 4 (5-15); ASPARTATE AMINOTRANSFERASE 18 U/L (10-37); CALCIUM 7.2 mg/dL (8.4-11.0); CHLORIDE 109 mmol/L (98-107); CREATININE 1.15 mg/dL (0.55-1.30); GLUCOSE 99 mg/dL (70-99); POTASSIUM 3.8 mmol/L (3.5-5.1); SODIUM SERUM 136 mmol/L (136-145); TOTAL BILIRUBIN 0.4 mg/dL (0.0-1.0); TOTAL PROTEIN, SERUM 7.3 g/dL (6.4-8.3); UREA NITROGEN, BLOOD 29 mg/dL (8-21)
--- NOTE | 2017-01-21 07:42 | NUR ---
ZOFRAN/CLOSING NOTES Late entry due to pt. care. Pt. was given zofran IVP as ordered PRN for nausea and vomiting. Moderate amount of emesis noted. All needs met throughout shift. Safety precautions in place. Spouse at bedside. Endorsed care and bedside report given to day shift nurse.
--- NOTE | 2017-01-21 07:47 | NUR ---
Nutrition Update Blayne Scale 15 noted. Pt admitted for nausea, vomiting, tachycardia, r/o sepsis. Diet: clear liquid BMI: 24 kg/m2 RD to follow per nutrition care standards.
[2017-01-21 07:54] VITALS: BP 126/67; PULSE 80; RESP 17; TEMP 98.7; O2SAT 97
--- NOTE | 2017-01-21 07:54 | NUR ---
Initial Note Received pt in bed, no s/s of distress or sob noted, pt has no c/o pain, pt in stable condition. Pt aaox3, verbal. IV catheter patent, no signs of infection or infiltration noted, running iv fluids as ordered. Bed at lowest position, call light within reach, will continue to monitor pt for any change, fall precautions in place, noted no nausea or vomiting at this time.
[2017-01-21] MEDS: PANTOPRAZOLE SODIUM 40 MG/VIAL (PROTONIX) IVP SCH (08:53)
--- NOTE | 2017-01-21 09:54 | NUR ---
ROUNDS Dr Yue webb, aware of patients condition, new orders written. Spoke with and pt about poc, both verbalized understanding
--- NOTE | 2017-01-21 10:06 | NUR ---
Consult Called consult spoke to Gayathri.
--- NOTE | 2017-01-21 10:46 | NUR ---
ROUNDS Pt in bed, no s/s of distress or sob noted, pt has no c/o pain, pt in stable condition, pt resting comfortably. Will continue to monitor pt for any changes.
[2017-01-21 11:40] VITALS: Ht 172.7 cm; Wt 71.7 kg
[2017-01-21 13:12] VITALS: BP 122/68; PULSE 82; RESP 17; TEMP 98; O2SAT 98
[2017-01-21] MEDS: LEVOFLOXACIN 500 MG/D5W 100 ML IV SCH (15:56)
[2017-01-21 16:04] VITALS: BP 124/66; PULSE 79; RESP 18; TEMP 97.9; O2SAT 99
--- NOTE | 2017-01-21 18:05 | NUR ---
CLOSING NOTE Pt in bed, no s/s of distress or sob noted, pt has no c/o pain, pt in stable condition. Pt aaox3, verbal. IV catheter patent, no signs of infection or infiltration noted, running iv fluids as ordered. Bed at lowest position, call light within reach, will endorse care of pt to incoming nurse, fall precautions in place, noted no nausea or vomiting at this time. Pt npo for abd ultrasound around 1930.
--- NOTE | 2017-01-21 19:30 | NUR ---
PM ROUNDS: abdominal ultrasound being done at bedside on change of shift. awake, alert and oriented. at bedside.call light within reach.
[2017-01-21 19:57] VITALS: BP 107/62; PULSE 72; RESP 20; TEMP 97.2; O2SAT 98
--- NOTE | 2017-01-21 20:00 | NUR ---
RN Notes: abdominal ultrasound completed, clear liquid given as ordered and tolerated well. no nausea nor vomiting. instructed to call nurse if help needed. call light within reach.
--- NOTE | 2017-01-21 22:00 | NUR ---
RN ROUNDS: pt. sleeping when checked and pt. at bedside. IVF patent.
--- NOTE | 2017-01-22 00:44 | NUR ---
ROUNDS: pt. sound asleep. in no distress when made rounds.
[2017-01-22 00:53] VITALS: BP 110/59; PULSE 74; RESP 12; TEMP 97.1; O2SAT 97
[2017-01-22] MEDS: NACL 0.9% 1,000 ML IV SCH ×2 (00:57→11:11)
--- NOTE | 2017-01-22 02:14 | NUR ---
ROUNDS: remain asleep when checked.
--- NOTE | 2017-01-22 02:35 | NUR ---
RN NOTES: pt. called and need help to void, uses urinal. no complaints of pain when asked.
[2017-01-22 03:38] VITALS: BP 108/55; PULSE 69; RESP 13; TEMP 97.1; O2SAT 98
--- NOTE | 2017-01-22 05:22 | NUR ---
ROUNDS: still sleeping when made rounds.
--- NOTE | 2017-01-22 06:10 | NUR ---
RN NOTES: pt. awake , noted to have dry throat, offered hot tea and tolerated well, no nausea.
[2017-01-22 06:40] LABS: EOSINOPHILS # (AUTO) 0.1 K/uL (0.0-0.4); EOSINOPHILS % (AUTO) 3.8 % (0.0-4.0); HEMATOCRIT 28.4 % (36-54); HEMOGLOBIN 9.1 g/dL (14.0-18.0); LYMPHOCYTES # (AUTO) 0.6 K/uL (1.0-5.5); LYMPHOCYTES % (AUTO) 17.7 % (20.5-51.5); MEAN CORPUSCULAR HEMOGLOBIN 29 pg (27-31); MEAN CORPUSCULAR HGB CONC 32 % (32-36); MEAN CORPUSCULAR VOLUME 91 fL (79.0-98.0); MONOCYTES # (AUTO) 0.5 K/uL (0.0-1.0); NEUTROPHILS # (AUTO) 2.3 K/uL (1.8-7.7); NEUTROPHILS % (AUTO) 62.5 % (40.0-70.0); PLATELET COUNT (AUTO) 229 K/uL (130-430); RED BLOOD CELL COUNT(AUTO) 3.13 MIL/uL (4.2-6.2); RED CELL DISTRIBUTION WIDTH 16.8 % (9.0-15.0); WHITE BLOOD COUNT (AUTO) 3.5 K/uL (4.8-10.8)
--- NOTE | 2017-01-22 06:40 | NUR ---
CLOSING NOTES: pt. pretty awake, still feels weak. IVF patent, denies any pain. informed about change of shift. cardiac pattern remains sinus rhythm.will endorse to incoming shift.
[2017-01-22 06:50] LABS: ALANINE AMINOTRANSFERASE 40 U/L (12-78); ALBUMIN 1.7 g/dL (3.4-4.8); AMYLASE 74 U/L (0-100); ANION GAP 6 (5-15); ASPARTATE AMINOTRANSFERASE 15 U/L (10-37); CALCIUM 7.1 mg/dL (8.4-11.0); CHLORIDE 111 mmol/L (98-107); CREATININE 0.88 mg/dL (0.55-1.30); GLUCOSE 78 mg/dL (70-99); LIPASE 93 U/L (73-393); POTASSIUM 3.7 mmol/L (3.5-5.1); SODIUM SERUM 138 mmol/L (136-145); TOTAL BILIRUBIN 0.3 mg/dL (0.0-1.0); TOTAL PROTEIN, SERUM 6.1 g/dL (6.4-8.3); UREA NITROGEN, BLOOD 15 mg/dL (8-21)
--- NOTE | 2017-01-22 07:29 | NUR ---
endorsed pt. to incoming shift with nurse Craig,
[2017-01-22 08:00] VITALS: BP_SYST 117; BP_SYST 124; BP_DIAS 62; BP_DIAS 63; PULSE 69; PULSE 77; RESP 18; TEMP 97.7; O2SAT 97; O2SAT 99
--- NOTE | 2017-01-22 08:00 | NUR ---
NOTE DR RENEE SAW PT AND ASSESSMENT WAS COMPLETED AT THIS TIME. NO SOB/RESP DISTRESS OR PAIN/DISCOMFORT WAS NOTED AT THIS TIME. IV IN LEFT WRIST WAS INTACT AND INFUSING IVF'S AT THIS TIME. PT AMBULATES WITH ASSIST TO RESTROOM. PT HAD FEELING OF LIGHTHEADEDNESS AND DIZZINESS SITTING UP IN BED EATING HIS BREAKFAST. DR RENEE WAS ON THE FLOOR AND NOTIFIED. VSS. NO SOB OR LOW O2 NOTED AT THIS TIME. CALL LIGHT WITHIN REACH.
[2017-01-22] MEDS: PANTOPRAZOLE SODIUM 40 MG/VIAL (PROTONIX) IVP SCH (08:52)
--- NOTE | 2017-01-22 11:00 | NUR ---
NOTE PT RESTING IN BED. PT'S AT BEDSIDE AT THIS TIME. NO NEEDS NOTED. NO DIZZINESS OR LIGHTHEADEDNESS NOTED AT THIS TIME. CALL LIGHT WITHIN REACH.
[2017-01-22 12:24] VITALS: BP 123/63; PULSE 67; RESP 17; TEMP 97.9; O2SAT 100
[2017-01-22] MEDS: metroNIDAZOLE 500 mg/NS 100 ML IV SCH ×2 (13:52→21:34)
--- NOTE | 2017-01-22 14:00 | NUR ---
NOTE PT'S , SON AND DAUGHTER IN LAW WERE IN THE ROOM. UPDATE ON PT'S STATUS GIVEN. QUESTIONS/CONCERNS WERE ANSWERED AT THIS TIME. CALL LIGHT WITHIN REACH.
--- NOTE | 2017-01-22 15:05 | NUR ---
NOTE PT OOB AND AMBULATING WITH HIS 2 SONS AT THIS TIME IN THE ROOM AND INTO HALLWAY.
[2017-01-22] MEDS: LEVOFLOXACIN 500 MG/D5W 100 ML IV SCH (16:20)
[2017-01-22 16:54] VITALS: BP 126/68; PULSE 72; RESP 17; TEMP 98; O2SAT 100
--- NOTE | 2017-01-22 17:10 | NUR ---
NOTE PT WAS SITTING UP IN BS CHAIR FOR ABOUT 30 MINUTES AFTER AMBULATING WITH SONS TO DOOR OF ROOM. PT NOW ASSISTED BACK TO BED WITH CLEAN AND FRESH GOWN. NO SOB/RESP DISTRESS OR DIZZINESS/LIGHTHEADEDNESS NOTED AT THIS TIME. FAMILY AT BEDSIDE (ABOUT 5-7 MEMBERS). NO NEEDS NOTED. CALL LIGHT WITHIN REACH. IVF'S INFUSING WELL.
--- NOTE | 2017-01-22 18:25 | NUR ---
NOTE PT SITTING UP IN BED WITH FAMILY AT BEDSIDE. IVF'S INFUSING WELL THROUGH LEFT IV SITE. NO SOB/RESP DISTRESS OR DIZZINESS/LIGHTHEADEDNESS OR PAIN/DISCOMFORT NOTED AT THIS TIME. NO NEEDS NOTED. CALL LIGHT WITHIN REACH.
--- NOTE | 2017-01-22 19:30 | NUR ---
ROUNDS: change of shift, pt. awake, alert and oriented, at bedside. denies any discomfort. call light within reach.
[2017-01-22 19:50] VITALS: BP 118/59; PULSE 72; RESP 20; TEMP 97.2; O2SAT 99
[2017-01-22] MEDS: ACYCLOVIR IV 500 MG in D5W 100 ML IV SCH (20:22)
[2017-01-22] MEDS: LACTOBACILLUS RHAMNOSUS GG 1 CAP CAPSULE PO SCH (20:24)
--- NOTE | 2017-01-22 21:00 | NUR ---
ROUNDS: scheduled meds given. visitors at bedside. pt. comfortable, no complaints of pain.
--- NOTE | 2017-01-22 23:50 | NUR ---
ROUNDS: pt. sleeping when checked. at bedside.
--- NOTE | 2017-01-23 00:52 | NUR ---
ROUNDS: condition unchanged. pt. sleeping.
[2017-01-23 00:53] VITALS: BP 112/60; PULSE 76; RESP 18; TEMP 98.3; O2SAT 98
[2017-01-23] MEDS: NACL 0.9% 1,000 ML IV SCH (01:50)
--- NOTE | 2017-01-23 03:30 | NUR ---
ROUNDS: woke up to void but goes back to sleep.
[2017-01-23 04:53] VITALS: BP 134/72; PULSE 65; RESP 18; TEMP 98.2; O2SAT 99
[2017-01-23] MEDS: metroNIDAZOLE 500 mg/NS 100 ML IV SCH (05:32)
--- NOTE | 2017-01-23 06:31 | NUR ---
CLOSING NOTES: pretty awake, watching tv with at bedside. repositioned, back care done, some redness on coccyx area, applied barrier cream. IVF patent, denies any pain. instructed to call for help. informed about shift change.
[2017-01-23 07:06] LABS: BASOPHILS % (AUTO) 1.3 % (0.0-2.0); EOSINOPHILS # (AUTO) 0.2 K/uL (0.0-0.4); HEMOGLOBIN 8.8 g/dL (14.0-18.0); LYMPHOCYTES # (AUTO) 0.6 K/uL (1.0-5.5); LYMPHOCYTES % (AUTO) 18.8 % (20.5-51.5); MEAN CORPUSCULAR HEMOGLOBIN 30 pg (27-31); MEAN CORPUSCULAR HGB CONC 33 % (32-36); MEAN CORPUSCULAR VOLUME 91 fL (79.0-98.0); MONOCYTES # (AUTO) 0.5 K/uL (0.0-1.0); NEUTROPHILS # (AUTO) 1.7 K/uL (1.8-7.7); PLATELET COUNT (AUTO) 216 K/uL (130-430); RED BLOOD CELL COUNT(AUTO) 2.99 MIL/uL (4.2-6.2); RED CELL DISTRIBUTION WIDTH 16.4 % (9.0-15.0)
--- NOTE | 2017-01-23 07:30 | NUR ---
INITIAL NOTE RECEIVED PATIENT FROM LABEL FUSER TENDER NURSE, PATIENT IS RESTING IN BED, NO SIGNS OF DISTRESS, PATIENT HAS NO COMPLAINTS OF PAIN AT THIS TIME, ASSESSMENT COMPLETE, PATIENT HAS IV IN LEFT FOREARM WITH FLUIDS INFUSING, NO SIGNS OF INFILTRATION, SCDS ARE CURRENTLY ON, REEDUCATED PATIENT ON HOW TO USE CALL BENNETT AND TO CALL IF ASSISTANCE IS NEEDED, PATIENT VERBALIZED UNDERSTANDING, CALL BENNETT LEFT IN PATIENT'S HAND, BED IN LOWEST POSITION, BED ALARM ON, TWO SIDE RAILS UP, FALL PRECAUTIONS IN PLACE, WILL CONTINUE TO MONITOR PATIENT.
[2017-01-23 08:00] VITALS: BP 138/84; PULSE 64; RESP 18; TEMP 97.4; O2SAT 100
[2017-01-23] MEDS: LACTOBACILLUS RHAMNOSUS GG 1 CAP CAPSULE PO SCH (08:14)
[2017-01-23] MEDS: ACYCLOVIR IV 500 MG in D5W 100 ML IV SCH (08:15)
[2017-01-23] MEDS: PANTOPRAZOLE SODIUM 40 MG/VIAL (PROTONIX) IVP SCH (08:15)
--- NOTE | 2017-01-23 08:20 | NUR ---
MEDICATION PATIENT RECEIVED MORNING MEDICATIONS, EDUCATED PATIENT ON POTENTIAL SIDE EFFECTS, PATIENT VERBALIZED UNDERSTANDING, NO OTHER NEEDS AT THIS TIME, WILL CONTINUE TO MONITOR PATIENT, FALL PRECAUTIONS IN PLACE.
[2017-01-23 08:24] LABS: ALANINE AMINOTRANSFERASE 38 U/L (12-78); ALBUMIN 1.7 g/dL (3.4-4.8); ANION GAP 4 (5-15); ASPARTATE AMINOTRANSFERASE 18 U/L (10-37); CALCIUM 7.2 mg/dL (8.4-11.0); CHLORIDE 110 mmol/L (98-107); CREATININE 0.91 mg/dL (0.55-1.30); GLUCOSE 89 mg/dL (70-99); POTASSIUM 3.5 mmol/L (3.5-5.1); SODIUM SERUM 138 mmol/L (136-145); TOTAL BILIRUBIN 0.3 mg/dL (0.0-1.0); TOTAL PROTEIN, SERUM 6.1 g/dL (6.4-8.3); UREA NITROGEN, BLOOD 11 mg/dL (8-21)
--- NOTE | 2017-01-23 10:00 | NUR ---
RN ROUND PATIENT IS CURRENTLY SITTING UP WATCHING TV, NO SIGNS OF DISTRESS, PATIENT HAS NO COMPLAINTS OF PAIN, DR. RENEE SEEN PATIENT, WILL CONTINUE TO MONITOR PATIENT, CALL BENNETT LEFT IN PATIENT'S HAND, FALL PRECAUTIONS IN PLACE,
[2017-01-23 10:46] LABS: NEUTROPHILS % (AUTO) 58.9 % (40.0-70.0)
[2017-01-23] MEDS ORDERED: METR500T PO (11:13)
[2017-01-23] MEDS ORDERED: ACYC400T PO (11:18)
[2017-01-23] MEDS ORDERED: ONDA4TAB5 SL (11:19)
[2017-01-23 12:14] VITALS: BP 130/80; PULSE 65; RESP 18; TEMP 97.8; O2SAT 96
[2017-01-23 12:28] VITALS: BP 130/85; PULSE 65; RESP 18; TEMP 97.6; O2SAT 96
--- NOTE | 2017-01-23 12:30 | NUR ---
D/C Patient Patient given medication reconciliation form and D/C instructions. Exit Care provided. Patient verbalized understanding. MD discussed with patient the results and treatment provided. Ambulatory with steady gait for discharge to home. Patient in stable condition, ID band removed. IV catheter removed, intact and dressing applied, no active bleeding. Rx of Zofran, zovirax, given. Patient educated on pain management. All belongings sent with patient.
--- NOTE | 2017-01-24 16:53 | NUR ---
Discharge Follow Up Phone Call: METROLOGIST called pt ([phone]) and pt's , Gina, answered the phone. Pt's states that pt is doing much better; pt's prescriptions have been filled; there are no questions regarding discharge or medication instructions; pt has a follow up appointment with PCP, Dr. Okeefe, on 01-28-17 and an appointment with the Oncologist on 01-31-17. Pt's did not express any other needs or concerns and denied the need for additional follow up at this time. No further follow up phone calls required at this time.
== END 2017-01-23 12:30 | disposition home or self-care (01) | DRG 392 ==
LOC: SED 12:04 → STU 14:42 → SMU 01-22 09:03
PROVIDERS: ADMIT Internal Medicine Hospice and Palliative Medicine; ATTEND Internal Medicine Hospice and Palliative Medicine
DX: R11.2 Nausea with vomiting, unspecified (principal); C90.00 Multiple myeloma not having achieved remission; E44.0 Moderate protein-calorie malnutrition; T45.1X5A Adverse effect of antineoplastic and immunosuppressive drugs, initial encounter; R19.7 Diarrhea, unspecified; B00.9 Herpesviral infection, unspecified; E78.5 Hyperlipidemia, unspecified; N40.0 Benign prostatic hyperplasia without lower urinary tract symptoms; D64.9 Anemia, unspecified; Z86.19 Personal history of other infectious and parasitic diseases; Z88.0 Allergy status to penicillin
CPT/HCPCS: 36415; 70450-TC; 71010; 74000-TC; 76700-TC; 80053; 80307; 81000-TC; 82140-TC; 82150-TC; 83605; 83690-TC; 83880; 84439; 84484; 85025; 85610-TC; 86694; 87040-TC; 87045-TC; 87046; 87081; 87086; 87177; 87230-TC; 87497; 89055; 93005; C9113; G0482; J0133; J1956; J2405; J3490; J7030; J7040; J7060

== ENCOUNTER 2017-03-11 11:05 | Inpatient (IN) | payer OTHER ==
[~2017-03-11] VITALS: Ht 172.7 cm; Wt 66.7 kg
[2017-03-11 11:05] VITALS: BP_SYST 121
[~2017-03-11 11:05] MED LIST changes: -ACET-2165 PO; +ACYC400T PO; -ASPI-1063 PO; -CALC-112 PO; -DEC4 PO; -DIPH25CA83 PO; -FAMO40TA35 PO; -FLUC100T41 PO; -HYDR-1189 PO; -MECL12.584 PO; +METR500T PO; +ONDA4TAB5 SL; -POMA4CAP PO; -SIMV20TA2 PO; -TAMS-11 PO
[2017-03-11] MEDS ORDERED: ASPI-859 PO (11:40)
[2017-03-11] MEDS ORDERED: ACYC400T PO (11:40)
[2017-03-11] MEDS ORDERED: CALC-112 PO (11:40)
[2017-03-11] MEDS ORDERED: MECL-123 PO (11:40)
[2017-03-11] MEDS ORDERED: METR250T PO (11:40)
[2017-03-11] MEDS ORDERED: DEXA4TAB PO (11:40)
[2017-03-11] MEDS ORDERED: SIMV20TA6 PO (11:40)
[2017-03-11] MEDS ORDERED: HYDR-1189 PO (11:40)
[2017-03-11] MEDS ORDERED: ACET-1010 PO (11:40)
[2017-03-11] MEDS ORDERED: FLUC100T41 PO (11:40)
[2017-03-11] MEDS ORDERED: POMA4CAP PO (11:40)
[2017-03-11] MEDS ORDERED: TAMS-11 PO (11:40)
[2017-03-11] MEDS ORDERED: FAMO40OR3 PO (11:40)
[2017-03-11] MEDS ORDERED: SULF1TAB3 PO (11:40)
[2017-03-11] MEDS ORDERED: SULF1TAB47 PO (11:40)
[2017-03-11 11:54] LABS: ANION GAP 11 (5-15); CALCIUM 8.5 mg/dL (8.4-11.0); CHLORIDE 104 mmol/L (98-107); CREATININE 1.24 mg/dL (0.55-1.30); GLUCOSE 118 mg/dL (70-99); POTASSIUM 4.3 mmol/L (3.5-5.1); SODIUM SERUM 135 mmol/L (136-145); UREA NITROGEN, BLOOD 14 mg/dL (8-21)
[2017-03-11 11:59] LABS: ALANINE AMINOTRANSFERASE 27 U/L (12-78); ALBUMIN 1.9 g/dL (3.4-4.8); ASPARTATE AMINOTRANSFERASE 21 U/L (10-37); TOTAL BILIRUBIN 0.4 mg/dL (0.0-1.0)
[2017-03-11 12:00] LABS: INR 1.3 (0.80-1.20); PROTHROMBIN TIME 13.7 SECS (9.5-12.5)
[2017-03-11 12:02] LABS: MEAN CORPUSCULAR HEMOGLOBIN 32 pg (27-31); MEAN CORPUSCULAR HGB CONC 33 % (32-36); MEAN CORPUSCULAR VOLUME 100 fL (79.0-98.0); PLATELET COUNT (AUTO) 325 K/uL (130-430); RED BLOOD CELL COUNT(AUTO) 2.14 MIL/uL (4.2-6.2); RED CELL DISTRIBUTION WIDTH 25.5 % (9.0-15.0); WHITE BLOOD COUNT (AUTO) 7.5 K/uL (4.8-10.8)
[2017-03-11 12:09] LABS: HEMATOCRIT 21.4 % (36-54); HEMOGLOBIN 6.9 g/dL (14.0-18.0)
[2017-03-11] MEDS ORDERED: NACL 0.9% 1,000 ML IV SCH (12:31)
[2017-03-11 12:39] LABS: BILIRUBIN,URINE NEGATIVE (NEGATIVE); BLOOD, URINE NEGATIVE (NEGATIVE); CLARITY/URINE CLEAR (CLEAR); COLOR,URINE YELLOW (YELLOW); GLUCOSE,URINE NEGATIVE (NEGATIVE); KETONES,URINE NEGATIVE (NEGATIVE); LEUKOCYTE ESTERASE ,URINE TRACE (NEGATIVE); NITRITE, URINE NEGATIVE (NEGATIVE); PH,URINE 5.5 (5.0-8.0); PROTEIN URINE NEGATIVE (NEGATIVE); UROBILINOGEN,URINE 0.2 (0.2-1.0)
[2017-03-11 13:21] LABS: BACTERIA,URINE RARE /HPF (None Seen); RBC,URINE 0-3 /HPF (0-3); WBC,URINE 0-3 /HPF (0-3)
[2017-03-11] MEDS ORDERED: NACL 0.9% 1,000 ML IV ONE (13:30)
[2017-03-11] MEDS ORDERED: ACETAMINOPHEN 500 MG TABLET PO ONE (13:30)
[2017-03-11] MEDS ORDERED: cefTRIAXone 1 GM IVPB PREMIX 50 ML IV SCH (13:30)
[2017-03-11] MEDS ORDERED: ACETAMINOPHEN 500 MG TABLET ONE (13:37)
[2017-03-11] MEDS ORDERED: cefTRIAXone 1 GM IVPB PREMIX 50 ML IV ONE (13:37)
[2017-03-11 14:03] VITALS: BP_SYST 107
[2017-03-11 16:00] VITALS: BP_SYST 101
[2017-03-11] MEDS: LEVOFLOXACIN 500 MG/D5W 100 ML IV SCH (17:14)
[2017-03-11] MEDS: D5NS 1,000 ML IV SCH ×2 (17:18→23:45)
[2017-03-11 17:45] VITALS: BP_SYST 103
[2017-03-11 21:35] VITALS: BP_SYST 101
[2017-03-12 01:40] VITALS: BP_SYST 123
[2017-03-12] MEDS: D5NS 1,000 ML IV SCH ×3 (05:11→20:56)
[2017-03-12 06:12] VITALS: BP_SYST 120
[2017-03-12 08:00] VITALS: BP_SYST 128
[2017-03-12 08:35] LABS: BASOPHILS % (AUTO) 0.4 % (0.0-2.0); EOSINOPHILS # (AUTO) 0.1 K/uL (0.0-0.4); EOSINOPHILS % (AUTO) 1.3 % (0.0-4.0); HEMATOCRIT 23.5 % (36-54); HEMOGLOBIN 7.5 g/dL (14.0-18.0); LYMPHOCYTES # (AUTO) 0.5 K/uL (1.0-5.5); LYMPHOCYTES % (AUTO) 9.4 % (20.5-51.5); MEAN CORPUSCULAR HEMOGLOBIN 31 pg (27-31); MEAN CORPUSCULAR HGB CONC 32 % (32-36); MEAN CORPUSCULAR VOLUME 96 fL (79.0-98.0); MONOCYTES # (AUTO) 1.1 K/uL (0.0-1.0); MONOCYTES % (AUTO) 18.4 % (1.7-9.3); NEUTROPHILS # (AUTO) 4.1 K/uL (1.8-7.7); NEUTROPHILS % (AUTO) 70.5 % (40.0-70.0); PLATELET COUNT (AUTO) 251 K/uL (130-430); RED BLOOD CELL COUNT(AUTO) 2.45 MIL/uL (4.2-6.2); WHITE BLOOD COUNT (AUTO) 5.8 K/uL (4.8-10.8)
[2017-03-12 09:06] LABS: ANION GAP 8 (5-15); CALCIUM 7.7 mg/dL (8.4-11.0); CHLORIDE 110 mmol/L (98-107); CREATININE 0.97 mg/dL (0.55-1.30); GLUCOSE 116 mg/dL (70-99); POTASSIUM 4.2 mmol/L (3.5-5.1); SODIUM SERUM 139 mmol/L (136-145); UREA NITROGEN, BLOOD 9 mg/dL (8-21)
[2017-03-12 09:13] LABS: ALANINE AMINOTRANSFERASE 23 U/L (12-78); ALBUMIN 1.8 g/dL (3.4-4.8); ASPARTATE AMINOTRANSFERASE 13 U/L (10-37); TOTAL BILIRUBIN 0.7 mg/dL (0.0-1.0); TOTAL PROTEIN, SERUM 6.5 g/dL (6.4-8.3)
[2017-03-12 12:45] VITALS: BP_SYST 128
[2017-03-12] MEDS: LEVOFLOXACIN 500 MG/D5W 100 ML IV SCH (14:00)
[2017-03-12] MEDS: ACETAMINOPHEN 325 MG TABLET PO PRN (16:30)
[2017-03-12 16:31] VITALS: BP_SYST 136
[2017-03-12 17:56] LABS: BILIRUBIN,URINE NEGATIVE (NEGATIVE); BLOOD, URINE NEGATIVE (NEGATIVE); CLARITY/URINE CLEAR (CLEAR); COLOR,URINE YELLOW (YELLOW); GLUCOSE,URINE NEGATIVE (NEGATIVE); KETONES,URINE NEGATIVE (NEGATIVE); LEUKOCYTE ESTERASE ,URINE NEGATIVE (NEGATIVE); NITRITE, URINE NEGATIVE (NEGATIVE); PROTEIN URINE NEGATIVE (NEGATIVE); UROBILINOGEN,URINE 0.2 (0.2-1.0)
[2017-03-12 19:05] VITALS: BP_SYST 126
[2017-03-13 01:25] VITALS: BP_SYST 135
[2017-03-13 06:00] VITALS: BP_SYST 130
[2017-03-13 07:06] LABS: BASOPHILS % (AUTO) 0.3 % (0.0-2.0); EOSINOPHILS # (AUTO) 0.1 K/uL (0.0-0.4); EOSINOPHILS % (AUTO) 2.5 % (0.0-4.0); HEMATOCRIT 27.9 % (36-54); HEMOGLOBIN 9.2 g/dL (14.0-18.0); LYMPHOCYTES # (AUTO) 0.5 K/uL (1.0-5.5); LYMPHOCYTES % (AUTO) 11.2 % (20.5-51.5); MEAN CORPUSCULAR HEMOGLOBIN 31 pg (27-31); MEAN CORPUSCULAR HGB CONC 33 % (32-36); MEAN CORPUSCULAR VOLUME 94 fL (79.0-98.0); MONOCYTES # (AUTO) 0.9 K/uL (0.0-1.0); MONOCYTES % (AUTO) 19.7 % (1.7-9.3); NEUTROPHILS # (AUTO) 2.9 K/uL (1.8-7.7); NEUTROPHILS % (AUTO) 66.3 % (40.0-70.0); PLATELET COUNT (AUTO) 249 K/uL (130-430); RED BLOOD CELL COUNT(AUTO) 2.96 MIL/uL (4.2-6.2); RED CELL DISTRIBUTION WIDTH 20.3 % (9.0-15.0); WHITE BLOOD COUNT (AUTO) 4.4 K/uL (4.8-10.8)
[2017-03-13 07:27] LABS: ALANINE AMINOTRANSFERASE 35 U/L (12-78); ALBUMIN 1.7 g/dL (3.4-4.8); ANION GAP 6 (5-15); ASPARTATE AMINOTRANSFERASE 35 U/L (10-37); CALCIUM 8.4 mg/dL (8.4-11.0); CHLORIDE 108 mmol/L (98-107); CREATININE 0.91 mg/dL (0.55-1.30); GLUCOSE 109 mg/dL (70-99); POTASSIUM 4.3 mmol/L (3.5-5.1); SODIUM SERUM 137 mmol/L (136-145); TOTAL BILIRUBIN 0.8 mg/dL (0.0-1.0); TOTAL PROTEIN, SERUM 7.4 g/dL (6.4-8.3); UREA NITROGEN, BLOOD 8 mg/dL (8-21)
[2017-03-13 12:31] VITALS: BP_SYST 136
[2017-03-13] MEDS: ACETAMINOPHEN 325 MG TABLET PO PRN ×2 (13:07→21:36)
[2017-03-13] MEDS: LEVOFLOXACIN 500 MG/D5W 100 ML IV SCH (14:00)
[2017-03-13] MEDS ORDERED: ACYCLOVIR 400 MG TABLET PO ONE (16:00)
[2017-03-13 16:39] VITALS: BP_SYST 120
[2017-03-13] MEDS: ACYCLOVIR 400 MG TABLET PO SCH (21:35)
[2017-03-13] MEDS: D5NS 1,000 ML IV SCH (21:35)
[2017-03-14] VITALS: BP_SYST 127
[2017-03-14 04:00] VITALS: BP_SYST 109
[2017-03-14] MEDS: ACYCLOVIR 400 MG TABLET PO SCH ×2 (06:12→14:24)
[2017-03-14 08:38] VITALS: BP_SYST 113
[2017-03-14 12:12] VITALS: BP_SYST 138
[2017-03-14] MEDS: ACETAMINOPHEN 325 MG TABLET PO PRN ×2 (13:43→19:45)
[2017-03-14] MEDS: LEVOFLOXACIN 500 MG/D5W 100 ML IV SCH (14:24)
[2017-03-14 16:43] VITALS: BP_SYST 113
[2017-03-14] MEDS: D5NS 1,000 ML IV SCH (19:31)
[2017-03-14 21:10] VITALS: BP_SYST 125
[2017-03-15 00:59] VITALS: BP_SYST 109
[2017-03-15 04:05] VITALS: BP_SYST 111
[2017-03-15] MEDS: ACYCLOVIR 400 MG TABLET PO SCH ×2 (06:45→06:47)
[2017-03-15 07:09] LABS: HEMATOCRIT 27.1 % (36-54); HEMOGLOBIN 9.1 g/dL (14.0-18.0); MEAN CORPUSCULAR HEMOGLOBIN 32 pg (27-31); MEAN CORPUSCULAR HGB CONC 34 % (32-36); MEAN CORPUSCULAR VOLUME 96 fL (79.0-98.0); PLATELET COUNT (AUTO) 261 K/uL (130-430); RED BLOOD CELL COUNT(AUTO) 2.83 MIL/uL (4.2-6.2); RED CELL DISTRIBUTION WIDTH 20.5 % (9.0-15.0)
[2017-03-15 07:25] LABS: ALANINE AMINOTRANSFERASE 161 U/L (12-78); ALBUMIN 1.7 g/dL (3.4-4.8); ANION GAP 6 (5-15); ASPARTATE AMINOTRANSFERASE 146 U/L (10-37); CALCIUM 8.7 mg/dL (8.4-11.0); CHLORIDE 108 mmol/L (98-107); CREATININE 0.91 mg/dL (0.55-1.30); GLUCOSE 112 mg/dL (70-99); POTASSIUM 4.1 mmol/L (3.5-5.1); SODIUM SERUM 139 mmol/L (136-145); TOTAL BILIRUBIN 0.6 mg/dL (0.0-1.0); TOTAL PROTEIN, SERUM 7.8 g/dL (6.4-8.3); UREA NITROGEN, BLOOD 9 mg/dL (8-21)
[2017-03-15 07:35] LABS: WHITE BLOOD COUNT (AUTO) 3.3 K/uL (4.8-10.8)
[2017-03-15 08:00] VITALS: BP_SYST 120
[2017-03-15 08:53] LABS: ATYPICAL LYMPHOCYTES % 0 % (0-0); BAND % (MANUAL) 2 % (0-6); BASOPHILS % (MANUAL) 0 % (0-2); EOSINOPHILS % (MANUAL) 3 % (0-7); LYMPHOCYTES % (MANUAL) 20 % (20-46); MONOCYTES % (MANUAL) 19 % (0-11); MYELOCYTES % 2 % (0-0)
[2017-03-15 11:27] VITALS: BP_SYST 107
[2017-03-15 11:30] VITALS: BP_SYST 107
== END 2017-03-15 13:07 | disposition home or self-care (01) | DRG 871 ==
LOC: SED 11:05 → STU 12:39
PROVIDERS: ADMIT Internal Medicine Hospice and Palliative Medicine; ATTEND Internal Medicine Hospice and Palliative Medicine
PROC: 30233N1 Transfusion of Nonautologous Red Blood Cells into Peripheral Vein, Percutaneous Approach (ICD-10-PCS; principal; 2017-03-11)
PROC: 30233N1 Transfusion of Nonautologous Red Blood Cells into Peripheral Vein, Percutaneous Approach (ICD-10-PCS; 2017-03-12)
DX: A41.9 Sepsis, unspecified organism (principal); J18.0 Bronchopneumonia, unspecified organism; C90.00 Multiple myeloma not having achieved remission; J20.9 Acute bronchitis, unspecified; D64.9 Anemia, unspecified; E78.5 Hyperlipidemia, unspecified; N40.0 Benign prostatic hyperplasia without lower urinary tract symptoms; B18.2 Chronic viral hepatitis C; M19.90 Unspecified osteoarthritis, unspecified site; Z88.0 Allergy status to penicillin; Z79.899 Other long term (current) drug therapy; Z79.82 Long term (current) use of aspirin
CPT/HCPCS: 36415; 71010; 80053; 81000-TC; 81003; 83605; 83880; 84484; 85007; 85025; 85027; 85610-TC; 85730-TC; 86886; 86900; 86901; 86920; 87040-TC; 87045-TC; 87046; 87070-TC; 87086; 87205-TC; 87230-TC; 93005; 96365; 99285; J0696; J1956; J7030; J7040; J7042; J7050; P9021

== ENCOUNTER 2017-07-03 22:51 | Inpatient (IN) | payer OTHER ==
[~2017-07-03] VITALS: Ht 172.7 cm; Wt 66.7 kg
[2017-07-03 22:51] VITALS: BP_SYST 114
[~2017-07-03 22:51] MED LIST changes: +ACET-1010 PO; +ASPI-859 PO; +CALC-112 PO; +DEXA4TAB PO; +FAMO40OR3 PO; +FLUC100T41 PO; +HYDR-1189 PO; +MECL-123 PO; +METR250T PO; -METR500T PO; -ONDA4TAB5 SL; +POMA4CAP PO; +SIMV20TA6 PO; +SULF1TAB3 PO; +SULF1TAB47 PO; +TAMS-11 PO
[2017-07-03] MEDS ORDERED: NS 500 ML IV SCH (23:15)
[2017-07-03] MEDS ORDERED: HYDROmorphone 1 MG INJ. 1 MG/ML AMPUL IVP ONE (23:15)
[2017-07-03] MEDS ORDERED: ONDANSETRON HCL 4 MG/2 ML VIAL IVP ONE (23:15)
[2017-07-03 23:41] LABS: MEAN CORPUSCULAR HEMOGLOBIN 33 pg (27-31); MEAN CORPUSCULAR HGB CONC 33 % (32-36); MEAN CORPUSCULAR VOLUME 99 fL (79.0-98.0)
[2017-07-03 23:50] LABS: HEMATOCRIT 24.3 % (36-54); HEMOGLOBIN 8.1 g/dL (14.0-18.0); RED BLOOD CELL COUNT(AUTO) 2.45 MIL/uL (4.2-6.2); RED CELL DISTRIBUTION WIDTH 25.8 % (9.0-15.0); WHITE BLOOD COUNT (AUTO) 3.8 K/uL (4.8-10.8)
[2017-07-03 23:56] LABS: INR 1.1 (0.80-1.20); PROTHROMBIN TIME 11.4 SECS (9.5-12.5)
[2017-07-03 23:59] LABS: ANION GAP 12 (5-15); CALCIUM 7.3 mg/dL (8.4-11.0); CHLORIDE 104 mmol/L (98-107); CREATININE 0.85 mg/dL (0.55-1.30); GLUCOSE 132 mg/dL (70-99); SODIUM SERUM 137 mmol/L (136-145); UREA NITROGEN, BLOOD 22 mg/dL (8-21)
[2017-07-04] VITALS (9 sets, daily range): BP systolic 98–132
[2017-07-04 00:03] LABS: PLATELET COUNT (AUTO) 39 K/uL (130-430)
[2017-07-04 00:15] LABS: ALANINE AMINOTRANSFERASE 23 U/L (12-78); ALBUMIN 2.6 g/dL (3.4-4.8); ASPARTATE AMINOTRANSFERASE 18 U/L (10-37); TOTAL BILIRUBIN 0.5 mg/dL (0.0-1.0)
[2017-07-04 00:19] LABS: BAND % (MANUAL) 8 % (0-6); BASOPHILS % (MANUAL) 0 % (0-2); EOSINOPHILS % (MANUAL) 1 % (0-7); LYMPHOCYTES % (MANUAL) 5 % (20-46); METAMYELOCYTES % 2 % (0-0); MONOCYTES % (MANUAL) 8 % (0-11)
[2017-07-04] MEDS ORDERED: LEVOFLOXACIN 500 MG/D5W 100 ML IV ONE (01:00)
[2017-07-04] MEDS ORDERED: DIF100 PO (01:08)
[2017-07-04] MEDS ORDERED: IXAZ4CAP PO (01:08)
[2017-07-04] MEDS ORDERED: MULT-1198 PO (01:10)
[2017-07-04] MEDS ORDERED: ALBUTEROL SULFATE 0.083% 2.5 MG/3 ML VIAL.NEB INH PRN (01:45)
[2017-07-04] MEDS ORDERED: FLU VACC QS 2017-18(36MOS+)/PF 0.5 ML/SYR SYRINGE I.M. PRN (02:30)
[2017-07-04] MEDS: ALBUTEROL SULFATE 0.083% 2.5 MG/3 ML VIAL.NEB INH SCH ×2 (07:33→23:10)
[2017-07-04] MEDS ORDERED: MORPHINE 2 MG/ML INJ. SYRINGE IVP PRN (08:15)
[2017-07-04] MEDS ORDERED: ACETAMINOPHEN 500 MG TABLET PO PRN (11:00)
[2017-07-04] MEDS: MORPHINE 2 MG/ML INJ. SYRINGE IVP PRN ×2 (12:36→21:26)
[2017-07-04] MEDS: ACYCLOVIR 400 MG TABLET PO SCH (21:15)
[2017-07-04] MEDS: TAMSULOSIN HCL 0.4 MG CAP PO SCH (21:16)
[2017-07-04] MEDS: LEVOFLOXACIN 500 MG/D5W 100 ML IV SCH (21:31)
[2017-07-05] MEDS: MORPHINE 2 MG/ML INJ. SYRINGE IVP PRN ×5 (02:49→23:53)
[2017-07-05 03:54] VITALS: BP_SYST 100
[2017-07-05] MEDS: ALBUTEROL SULFATE 0.083% 2.5 MG/3 ML VIAL.NEB INH SCH ×3 (07:10→23:15)
[2017-07-05 07:47] VITALS: BP_SYST 137
[2017-07-05 08:03] LABS: BASOPHILS % (AUTO) 0.4 % (0.0-2.0); EOSINOPHILS % (AUTO) 0.5 % (0.0-4.0); HEMOGLOBIN 7.3 g/dL (14.0-18.0); LYMPHOCYTES # (AUTO) 0.2 K/uL (1.0-5.5); LYMPHOCYTES % (AUTO) 5.2 % (20.5-51.5); MEAN CORPUSCULAR HEMOGLOBIN 34 pg (27-31); MEAN CORPUSCULAR HGB CONC 34 % (32-36); MEAN CORPUSCULAR VOLUME 100 fL (79.0-98.0); MONOCYTES # (AUTO) 0.4 K/uL (0.0-1.0); MONOCYTES % (AUTO) 14.8 % (1.7-9.3); NEUTROPHILS # (AUTO) 2.4 K/uL (1.8-7.7); RED BLOOD CELL COUNT(AUTO) 2.16 MIL/uL (4.2-6.2); RED CELL DISTRIBUTION WIDTH 26.2 % (9.0-15.0)
[2017-07-05 08:16] LABS: ALANINE AMINOTRANSFERASE 20 U/L (12-78); ASPARTATE AMINOTRANSFERASE 18 U/L (10-37); TOTAL BILIRUBIN 0.7 mg/dL (0.0-1.0)
[2017-07-05] MEDS: ACYCLOVIR 400 MG TABLET PO SCH ×2 (08:53→21:43)
[2017-07-05] MEDS: ASPIRIN 81 MG TABLET(ECOTRIN) PO SCH (08:53)
[2017-07-05] MEDS: TAMSULOSIN HCL 0.4 MG CAP PO SCH ×2 (08:53→21:43)
[2017-07-05] MEDS: FLUCONAZOLE 100 MG TABLET (DIFLUCAN) PO SCH (08:55)
[2017-07-05] MEDS: SIMVASTATIN 20 MG TABLET PO SCH (08:57)
[2017-07-05] MEDS ORDERED: DECADRON 4 MG TABLET PO SCH (09:00)
[2017-07-05 09:14] LABS: HEMATOCRIT 21.6 % (36-54); PLATELET COUNT (AUTO) 40 K/uL (130-430)
[2017-07-05 11:11] LABS: CALCIUM 7.7 mg/dL (8.4-11.0); CHLORIDE 104 mmol/L (98-107); CREATININE 0.75 mg/dL (0.55-1.30); GLUCOSE 109 mg/dL (70-99); POTASSIUM 4.1 mmol/L (3.5-5.1); UREA NITROGEN, BLOOD 15 mg/dL (8-21)
[2017-07-05 11:19] LABS: NEUTROPHILS % (AUTO) 79.1 % (40.0-70.0)
[2017-07-05 11:29] VITALS: BP_SYST 123
[2017-07-05 12:53] LABS: ANION GAP 10 (5-15); SODIUM SERUM 136 mmol/L (136-145)
[2017-07-05 15:35] VITALS: BP_SYST 130
[2017-07-05 20:39] VITALS: BP_SYST 107
[2017-07-05] MEDS: LEVOFLOXACIN 500 MG/D5W 100 ML IV SCH (21:43)
[2017-07-06 00:28] VITALS: BP_SYST 122
[2017-07-06 04:43] VITALS: BP_SYST 113
[2017-07-06] MEDS: MORPHINE 2 MG/ML INJ. SYRINGE IVP PRN (07:06)
[2017-07-06 08:21] VITALS: BP_SYST 111
[2017-07-06] MEDS ORDERED: DECADRON 4 MG TABLET PO SCH (09:00)
[2017-07-06 09:15] LABS: MEAN CORPUSCULAR HEMOGLOBIN 34 pg (27-31); MEAN CORPUSCULAR HGB CONC 34 % (32-36)
[2017-07-06 09:28] LABS: HEMOGLOBIN 8.9 g/dL (14.0-18.0); MEAN CORPUSCULAR VOLUME 99 fL (79.0-98.0); RED BLOOD CELL COUNT(AUTO) 2.62 MIL/uL (4.2-6.2); RED CELL DISTRIBUTION WIDTH 24.6 % (9.0-15.0)
[2017-07-06 09:29] LABS: PLATELET COUNT (AUTO) 54 K/uL (130-430); WHITE BLOOD COUNT (AUTO) 2.6 K/uL (4.8-10.8)
[2017-07-06] MEDS: SIMVASTATIN 20 MG TABLET PO SCH (09:40)
[2017-07-06] MEDS: ACYCLOVIR 400 MG TABLET PO SCH (09:40)
[2017-07-06] MEDS: TAMSULOSIN HCL 0.4 MG CAP PO SCH (09:40)
[2017-07-06] MEDS: FLUCONAZOLE 100 MG TABLET (DIFLUCAN) PO SCH (09:40)
[2017-07-06] MEDS: ASPIRIN 81 MG TABLET(ECOTRIN) PO SCH (09:41)
[2017-07-06] MEDS: ALBUTEROL SULFATE 0.083% 2.5 MG/3 ML VIAL.NEB INH SCH (09:46)
[2017-07-06 10:34] LABS: ATYPICAL LYMPHOCYTES % 0 % (0-0); BAND % (MANUAL) 8 % (0-6); BASOPHILS % (MANUAL) 0 % (0-2); EOSINOPHILS % (MANUAL) 0 % (0-7); LYMPHOCYTES % (MANUAL) 5 % (20-46); MONOCYTES % (MANUAL) 8 % (0-11)
[2017-07-06 11:26] VITALS: BP_SYST 128
[2017-07-06 12:24] VITALS: BP_SYST 128
[2017-07-06] MEDS ORDERED: LEVO500T20 PO (12:36)
== END 2017-07-06 13:55 | DRG 542 ==
LOC: SED 22:51 → SMU 07-04 01:32
PROVIDERS: ADMIT Internal Medicine Hospice and Palliative Medicine; ATTEND Internal Medicine Hospice and Palliative Medicine
PROC: 30233N1 Transfusion of Nonautologous Red Blood Cells into Peripheral Vein, Percutaneous Approach (ICD-10-PCS; principal; 2017-07-05)
DX: M84.48XA Pathological fracture, other site, initial encounter for fracture (principal); J18.9 Pneumonia, unspecified organism; C90.00 Multiple myeloma not having achieved remission; E43 Unspecified severe protein-calorie malnutrition; D69.6 Thrombocytopenia, unspecified; D64.9 Anemia, unspecified; J98.11 Atelectasis; I10 Essential (primary) hypertension; M19.90 Unspecified osteoarthritis, unspecified site; E78.5 Hyperlipidemia, unspecified; N40.0 Benign prostatic hyperplasia without lower urinary tract symptoms; Z87.891 Personal history of nicotine dependence; Z79.1 Long term (current) use of non-steroidal anti-inflammatories (NSAID); Z79.899 Other long term (current) drug therapy; Z88.0 Allergy status to penicillin; Z86.19 Personal history of other infectious and parasitic diseases; Z22.322 Carrier or suspected carrier of Methicillin resistant Staphylococcus aureus
CPT/HCPCS: 36415; 71010; 71100; 71250-TC; 80053; 83605; 84484; 85007; 85025; 85027; 85610-TC; 85730-TC; 86886; 86900; 86901; 86920; 87040-TC; 87081; 93005; 94640; 94760; 96361; 96365; 96375; 97110-GP; 97116-GP; 97530-GP; 99285; J1170; J1956; J2270; J2405; J7040; J7050; J8540; P9021; Q2037

== ENCOUNTER 2017-07-18 09:56 | Inpatient (IN) | payer OTHER ==
[~2017-07-18] VITALS: Ht 172.7 cm; Wt 68.0 kg
[~2017-07-18 09:56] MED LIST changes: +DIF100 PO; -FLUC100T41 PO; +IXAZ4CAP PO; +LEVO500T20 PO; -METR250T PO; +MULT-1198 PO; -SULF1TAB3 PO; -SULF1TAB47 PO
[2017-07-18 10:00] VITALS: BP_SYST 91
[2017-07-18] MEDS ORDERED: NACL 0.9% 1,000 ML IV ONE ×2 (10:30→12:00)
[2017-07-18 11:15] LABS: BASOPHILS # (AUTO) 0.1 K/uL (0.0-0.2); BASOPHILS % (AUTO) 0.4 % (0.0-2.0); EOSINOPHILS # (AUTO) 0.1 K/uL (0.0-0.4); EOSINOPHILS % (AUTO) 0.4 % (0.0-4.0); HEMOGLOBIN 8.4 g/dL (14.0-18.0); LYMPHOCYTES # (AUTO) 0.3 K/uL (1.0-5.5); LYMPHOCYTES % (AUTO) 2.2 % (20.5-51.5); MEAN CORPUSCULAR HEMOGLOBIN 33 pg (27-31); MEAN CORPUSCULAR HGB CONC 32 % (32-36); MEAN CORPUSCULAR VOLUME 102 fL (79.0-98.0); MONOCYTES # (AUTO) 0.3 K/uL (0.0-1.0); MONOCYTES % (AUTO) 1.9 % (1.7-9.3); NEUTROPHILS # (AUTO) 13.1 K/uL (1.8-7.7); NEUTROPHILS % (AUTO) 95.1 % (40.0-70.0); PLATELET COUNT (AUTO) 81 K/uL (130-430); RED BLOOD CELL COUNT(AUTO) 2.55 MIL/uL (4.2-6.2); WHITE BLOOD COUNT (AUTO) 13.9 K/uL (4.8-10.8)
[2017-07-18 11:35] LABS: ANION GAP 9 (5-15); CALCIUM 7.7 mg/dL (8.4-11.0); CHLORIDE 106 mmol/L (98-107); CREATININE 0.82 mg/dL (0.55-1.30); GLUCOSE 131 mg/dL (70-99); POTASSIUM 4.1 mmol/L (3.5-5.1); SODIUM SERUM 138 mmol/L (136-145); UREA NITROGEN, BLOOD 23 mg/dL (8-21)
[2017-07-18 11:40] LABS: ALANINE AMINOTRANSFERASE 61 U/L (12-78); ALBUMIN 1.7 g/dL (3.4-4.8); ASPARTATE AMINOTRANSFERASE 26 U/L (10-37); LIPASE 60 U/L (73-393); TOTAL BILIRUBIN 0.6 mg/dL (0.0-1.0)
[2017-07-18 11:48] LABS: BILIRUBIN,URINE NEGATIVE (NEGATIVE); BLOOD, URINE NEGATIVE (NEGATIVE); CLARITY/URINE CLEAR (CLEAR); COLOR,URINE YELLOW (YELLOW); GLUCOSE,URINE NEGATIVE (NEGATIVE); KETONES,URINE TRACE (NEGATIVE); LEUKOCYTE ESTERASE ,URINE NEGATIVE (NEGATIVE); NITRITE, URINE NEGATIVE (NEGATIVE); PH,URINE 5.5 (5.0-8.0); PROTEIN URINE TRACE (NEGATIVE); UROBILINOGEN,URINE 0.2 (0.2-1.0)
[2017-07-18 11:52] LABS: INR 1.2 (0.80-1.20)
[2017-07-18 12:00] LABS: BACTERIA,URINE FEW /HPF (None Seen); MUCUS,URINE 1+ /LPF (None Seen); RBC,URINE 0-3 /HPF (0-3); WBC,URINE 0-3 /HPF (0-3)
[2017-07-18] MEDS ORDERED: VANCOMYCIN HCL 1,000 MG in NS 250 ML IV ONE (12:00)
[2017-07-18] MEDS ORDERED: HYDROcodone/ACETAMIN 10-325 MG TAB PO ONE (12:00)
[2017-07-18] MEDS ORDERED: VANCOMYCIN HCL 1000 MG/VIAL IV ONE (13:34)
[2017-07-18] MEDS ORDERED: DEC4 PO (14:38)
[2017-07-18] MEDS ORDERED: SIMV20TA2 PO (14:38)
[2017-07-18] MEDS ORDERED: ASA81 PO (14:38)
[2017-07-18] MEDS ORDERED: ACYC400T PO (14:38)
[2017-07-18] MEDS ORDERED: CALC-226 PO (14:38)
[2017-07-18] MEDS ORDERED: FAMO40TA7 PO (14:38)
[2017-07-18] MEDS ORDERED: POMA1CAP PO (14:38)
[2017-07-18] MEDS ORDERED: DIF100 PO (14:38)
[2017-07-18] MEDS ORDERED: TAMS-11 PO (14:38)
[2017-07-18] MEDS ORDERED: MULT-1117 (14:38)
[2017-07-18] MEDS ORDERED: IXAZ4CAP PO (14:38)
[2017-07-18 15:16] VITALS: BP_SYST 131
[2017-07-18] MEDS ORDERED: IPRATROPIUM BROM 0.5 MG/2.5 ML VIAL.NEB (ATROVENT) INH PRN (15:30)
[2017-07-18] MEDS ORDERED: ALBUTEROL SULFATE 0.083% 2.5 MG/3 ML VIAL.NEB INH PRN (15:30)
[2017-07-18 16:35] VITALS: BP_SYST 131
[2017-07-18 16:44] VITALS: BP_SYST 111
[2017-07-18] MEDS: IPRATROPIUM BROM 0.5 MG/2.5 ML VIAL.NEB (ATROVENT) INH SCH ×2 (19:42→23:00)
[2017-07-18] MEDS: ALBUTEROL SULFATE 0.083% 2.5 MG/3 ML VIAL.NEB INH SCH ×2 (19:42→23:00)
[2017-07-18 20:00] VITALS: BP_SYST 109
[2017-07-18] MEDS: TAMSULOSIN HCL 0.4 MG CAP PO SCH (20:50)
[2017-07-18] MEDS ORDERED: TAMSULOSIN HCL 0.4 MG CAP PO SCH (21:00)
[2017-07-18] MEDS ORDERED: MORPHINE 2 MG/ML INJ. SYRINGE IVP PRN (21:15)
[2017-07-18] MEDS: HYDROcodone/ACETAMIN 10-325 MG TAB PO PRN (21:17)
[2017-07-19] MEDS: ALBUTEROL SULFATE 0.083% 2.5 MG/3 ML VIAL.NEB INH SCH ×6 (03:00→23:00)
[2017-07-19] MEDS: IPRATROPIUM BROM 0.5 MG/2.5 ML VIAL.NEB (ATROVENT) INH SCH ×6 (03:00→23:00)
[2017-07-19] MEDS: HYDROcodone/ACETAMIN 10-325 MG TAB PO PRN (04:14)
[2017-07-19 04:40] VITALS: BP_SYST 109
[2017-07-19 08:10] VITALS: BP_SYST 96
[2017-07-19] MEDS ORDERED: ASPIRIN 81 MG TAB.CHEW PO SCH (09:00)
[2017-07-19] MEDS ORDERED: DECADRON 4 MG TABLET PO SCH (09:00)
[2017-07-19] MEDS: TAMSULOSIN HCL 0.4 MG CAP PO SCH ×2 (09:09→21:05)
[2017-07-19] MEDS: FLUCONAZOLE 100 MG TABLET (DIFLUCAN) PO SCH (09:10)
[2017-07-19] MEDS: CALCIUM CARBONATE/VITAMIN D3 1 TAB TABLET PO SCH (09:10)
[2017-07-19] MEDS: LEVOFLOXACIN 500 MG/D5W 100 ML IV SCH (09:29)
[2017-07-19] MEDS: ASPIRIN 81 MG TABLET(ECOTRIN) PO SCH (10:21)
[2017-07-19] MEDS ORDERED: methylPREDNISolone SOD SUCC/PF 62.5 MG/ML VIAL IVP ONE (10:30)
[2017-07-19 11:04] LABS: HEMATOCRIT 25.4 % (36-54); HEMOGLOBIN 8.5 g/dL (14.0-18.0); MEAN CORPUSCULAR HEMOGLOBIN 34 pg (27-31); MEAN CORPUSCULAR HGB CONC 34 % (32-36); MEAN CORPUSCULAR VOLUME 103 fL (79.0-98.0); PLATELET COUNT (AUTO) 103 K/uL (130-430); RED BLOOD CELL COUNT(AUTO) 2.46 MIL/uL (4.2-6.2); RED CELL DISTRIBUTION WIDTH 25.5 % (9.0-15.0)
[2017-07-19 11:09] LABS: ANION GAP 14 (5-15); CALCIUM 8.5 mg/dL (8.4-11.0); CHLORIDE 104 mmol/L (98-107); GLUCOSE 156 mg/dL (70-99); POTASSIUM 4.4 mmol/L (3.5-5.1); SODIUM SERUM 137 mmol/L (136-145); UREA NITROGEN, BLOOD 16 mg/dL (8-21); WHITE BLOOD COUNT (AUTO) 15.9 K/uL (4.8-10.8)
[2017-07-19 11:14] LABS: ALANINE AMINOTRANSFERASE 43 U/L (12-78); ALBUMIN 1.6 g/dL (3.4-4.8); ASPARTATE AMINOTRANSFERASE 24 U/L (10-37); LACTATE DEHYDROGENASE 285 U/L (85-227); TOTAL BILIRUBIN 0.4 mg/dL (0.0-1.0)
[2017-07-19 11:41] LABS: ATYPICAL LYMPHOCYTES % 0 % (0-0); BAND % (MANUAL) 6 % (0-6); BASOPHILS % (MANUAL) 0 % (0-2); EOSINOPHILS % (MANUAL) 0 % (0-7); LYMPHOCYTES % (MANUAL) 6 % (20-46); METAMYELOCYTES % 3 % (0-0); MONOCYTES % (MANUAL) 3 % (0-11); MYELOCYTES % 3 % (0-0)
[2017-07-19 12:00] VITALS: BP_SYST 116
[2017-07-19] MEDS ORDERED: LIDOCAINE 1%, 20 ML MDV 20 ML ONE (14:24)
[2017-07-19] MEDS: methylPREDNISolone SOD SUCC/PF 62.5 MG/ML VIAL IVP SCH ×2 (15:03→21:05)
[2017-07-19 17:15] LABS: BF APPEARANCE UNSPUN SLIGHTLY CLOUDY (CLEAR); BODY FLUID SOURCE/ TYPE PLEURAL; SOURCE/TYPE ,BODY FLUID THORACENTESIS
[2017-07-19 17:16] LABS: BODY FLUID COLOR YELLOW (LT YELLOW); BODY FLUID TOTAL VOLUME 550 mL; LYMPHOCYTES, BODY FLUID 1 %; MONOCYTES,BODY FLUID 6 %; NEUTROPHIL, BODY FLUID 93 %; RBC, BODY FLUID 1408 /uL; WBC, BODY FLUID 1320 /uL
[2017-07-19 17:45] VITALS: BP_SYST 112
[2017-07-19 20:00] VITALS: BP_SYST 112
[2017-07-19] MEDS: VANCOMYCIN HCL 1,000 MG in NS 250 ML IV SCH (21:04)
[2017-07-19] MEDS: ACYCLOVIR 400 MG TABLET PO SCH (21:05)
[2017-07-20] VITALS (7 sets, daily range): BP systolic 108–128
[2017-07-20 01:06] LABS: BODY FLUID GLUCOSE 20 mg/dL; BODY FLUID TOTAL PROTEIN 3.8 g/dL
[2017-07-20] MEDS: IPRATROPIUM BROM 0.5 MG/2.5 ML VIAL.NEB (ATROVENT) INH SCH ×4 (03:00→15:31)
[2017-07-20] MEDS: ALBUTEROL SULFATE 0.083% 2.5 MG/3 ML VIAL.NEB INH SCH ×4 (03:00→15:30)
[2017-07-20] MEDS: methylPREDNISolone SOD SUCC/PF 62.5 MG/ML VIAL IVP SCH ×2 (06:35→14:47)
[2017-07-20] MEDS: VANCOMYCIN HCL 1,000 MG in NS 250 ML IV SCH ×2 (06:36→17:44)
[2017-07-20 07:16] LABS: ALANINE AMINOTRANSFERASE 43 U/L (12-78); ALBUMIN 1.5 g/dL (3.4-4.8); ANION GAP 8 (5-15); ASPARTATE AMINOTRANSFERASE 24 U/L (10-37); CALCIUM 8.5 mg/dL (8.4-11.0); CHLORIDE 111 mmol/L (98-107); CREATININE 0.72 mg/dL (0.55-1.30); GLUCOSE 174 mg/dL (70-99); POTASSIUM 3.8 mmol/L (3.5-5.1); SODIUM SERUM 141 mmol/L (136-145); TOTAL BILIRUBIN 0.3 mg/dL (0.0-1.0); UREA NITROGEN, BLOOD 15 mg/dL (8-21)
[2017-07-20 07:27] LABS: HEMATOCRIT 22.3 % (36-54); HEMOGLOBIN 7.4 g/dL (14.0-18.0); MEAN CORPUSCULAR HEMOGLOBIN 34 pg (27-31); MEAN CORPUSCULAR HGB CONC 33 % (32-36); MEAN CORPUSCULAR VOLUME 101 fL (79.0-98.0); PLATELET COUNT (AUTO) 92 K/uL (130-430); RED CELL DISTRIBUTION WIDTH 25.2 % (9.0-15.0)
[2017-07-20 07:30] LABS: WHITE BLOOD COUNT (AUTO) 11.6 K/uL (4.8-10.8)
[2017-07-20] MEDS: ASPIRIN 81 MG TABLET(ECOTRIN) PO SCH (08:53)
[2017-07-20] MEDS: FLUCONAZOLE 100 MG TABLET (DIFLUCAN) PO SCH (08:53)
[2017-07-20] MEDS: LEVOFLOXACIN 500 MG/D5W 100 ML IV SCH (08:53)
[2017-07-20] MEDS: CALCIUM CARBONATE/VITAMIN D3 1 TAB TABLET PO SCH (08:54)
[2017-07-20] MEDS: ACYCLOVIR 400 MG TABLET PO SCH (08:54)
[2017-07-20] MEDS: TAMSULOSIN HCL 0.4 MG CAP PO SCH (08:55)
[2017-07-20 11:43] LABS: ATYPICAL LYMPHOCYTES % 0 % (0-0); BAND % (MANUAL) 7 % (0-6); BASOPHILS % (MANUAL) 0 % (0-2); EOSINOPHILS % (MANUAL) 0 % (0-7); LYMPHOCYTES % (MANUAL) 4 % (20-46); METAMYELOCYTES % 2 % (0-0); MONOCYTES % (MANUAL) 3 % (0-11)
== END 2017-07-20 20:45 | disposition short-term general hospital (02) | DRG 871 ==
LOC: SED 09:56 → STU 14:39
PROVIDERS: ADMIT Internal Medicine Hospice and Palliative Medicine; ATTEND Internal Medicine Hospice and Palliative Medicine
PROC: 0W9B3ZZ Drainage of Left Pleural Cavity, Percutaneous Approach (ICD-10-PCS; principal; 2017-07-19)
DX: A41.9 Sepsis, unspecified organism (principal); J18.9 Pneumonia, unspecified organism; J86.9 Pyothorax without fistula; J90 Pleural effusion, not elsewhere classified; D89.9 Disorder involving the immune mechanism, unspecified; C90.00 Multiple myeloma not having achieved remission; I48.91 Unspecified atrial fibrillation; E86.0 Dehydration; E78.5 Hyperlipidemia, unspecified; N40.0 Benign prostatic hyperplasia without lower urinary tract symptoms; B00.9 Herpesviral infection, unspecified; L98.9 Disorder of the skin and subcutaneous tissue, unspecified; Z87.891 Personal history of nicotine dependence; Z88.0 Allergy status to penicillin; Z79.82 Long term (current) use of aspirin; Z79.899 Other long term (current) drug therapy; D64.9 Anemia, unspecified; Z86.19 Personal history of other infectious and parasitic diseases
CPT/HCPCS: 32555; 36415; 71010; 71250-TC; 80053; 81000-TC; 82947-TC; 83605; 83615-TC; 83690-TC; 83880; 84157-TC; 84484; 85007; 85025; 85027; 85610-TC; 87040-TC; 87070-TC; 87081; 87116; 87186-TC; 88108; 88305; 89051-TC; 89060-TC; 93005; 94640; 94760; 96361; 96365; 96366; 96367; 97116-GP; 99291; C1729; J1956; J2001; J2270; J2930; J3370; J7030; J7050; J8540

== ENCOUNTER 2017-08-08 09:59 | Inpatient (IN) | payer OTHER ==
[~2017-08-08] VITALS: Ht 172.7 cm; Wt 68.6 kg
[~2017-08-08 09:59] MED LIST changes: +ASA81 PO; +CALC-226 PO; +DEC4 PO; +FAMO40TA7 PO; +MULT-1117; +POMA1CAP PO; +SIMV20TA2 PO
[2017-08-08 10:01] VITALS: BP_SYST 119
[2017-08-08] MEDS ORDERED: DEC4 PO (10:23)
[2017-08-08 11:09] LABS: BASOPHILS % (AUTO) 0.1 % (0.0-2.0); EOSINOPHILS # (AUTO) 0.1 K/uL (0.0-0.4); EOSINOPHILS % (AUTO) 0.7 % (0.0-4.0); HEMOGLOBIN 7.2 g/dL (14.0-18.0); LYMPHOCYTES # (AUTO) 0.4 K/uL (1.0-5.5); LYMPHOCYTES % (AUTO) 4.7 % (20.5-51.5); MEAN CORPUSCULAR HEMOGLOBIN 33 pg (27-31); MEAN CORPUSCULAR HGB CONC 34 % (32-36); MEAN CORPUSCULAR VOLUME 99 fL (79.0-98.0); MONOCYTES # (AUTO) 0.4 K/uL (0.0-1.0); MONOCYTES % (AUTO) 5.4 % (1.7-9.3); NEUTROPHILS % (AUTO) 89.1 % (40.0-70.0); PLATELET COUNT (AUTO) 166 K/uL (130-430); RED BLOOD CELL COUNT(AUTO) 2.16 MIL/uL (4.2-6.2); RED CELL DISTRIBUTION WIDTH 24.4 % (9.0-15.0); WHITE BLOOD COUNT (AUTO) 7.9 K/uL (4.8-10.8)
[2017-08-08 11:15] LABS: HEMATOCRIT 21.4 % (36-54)
[2017-08-08 11:20] LABS: ANION GAP 12 (5-15); CALCIUM 8.1 mg/dL (8.4-11.0); CHLORIDE 109 mmol/L (98-107); CREATININE 1.08 mg/dL (0.55-1.30); GLUCOSE 186 mg/dL (70-99); POTASSIUM 3.4 mmol/L (3.5-5.1); SODIUM SERUM 145 mmol/L (136-145); UREA NITROGEN, BLOOD 16 mg/dL (8-21)
[2017-08-08 11:25] LABS: ALANINE AMINOTRANSFERASE 28 U/L (12-78); ALBUMIN 2.2 g/dL (3.4-4.8); ASPARTATE AMINOTRANSFERASE 21 U/L (10-37); INR 1.1 (0.80-1.20); TOTAL BILIRUBIN 0.4 mg/dL (0.0-1.0)
[2017-08-08] MEDS: ALBUTEROL SULFATE 0.083% 2.5 MG/3 ML VIAL.NEB INH SCH ×3 (11:30→19:46)
[2017-08-08] MEDS ORDERED: IPRATROPIUM BROM 0.5 MG/2.5 ML VIAL.NEB (ATROVENT) INH PRN (11:30)
[2017-08-08] MEDS ORDERED: ACETAMINOPHEN 325 MG TABLET PO ONE (11:30)
[2017-08-08] MEDS ORDERED: TEMAZEPAM 15 MG CAPSULE PO PRN (11:30)
[2017-08-08] MEDS ORDERED: LORATADINE 10 MG TABLET PO ONE (11:30)
[2017-08-08] MEDS ORDERED: DIPHENHYDRAMINE HCL 12.5 MG/5 ML UDC NG ONE ×2 (11:30)
[2017-08-08] MEDS: IPRATROPIUM BROM 0.5 MG/2.5 ML VIAL.NEB (ATROVENT) INH SCH ×3 (11:30→19:46)
[2017-08-08] MEDS ORDERED: ALBUTEROL SULFATE 0.083% 2.5 MG/3 ML VIAL.NEB INH PRN (11:30)
[2017-08-08] MEDS ORDERED: AZITHROMYCIN 500 MG in NS 250 ML IV SCH (12:00)
[2017-08-08 12:10] VITALS: BP_SYST 134
[2017-08-08] MEDS ORDERED: COMMUNICATION ORDER XX ONE (12:45)
[2017-08-08] MEDS ORDERED: HEPARIN 25,000 UNITS/D5W 250ML 250 ML IV PRN (12:45)
[2017-08-08] MEDS ORDERED: DIPHENHYDRAMINE HCL 12.5 MG/5 ML UDC PO ONE (12:45)
[2017-08-08 12:58] LABS: INR 1.1 (0.80-1.20); PROTHROMBIN TIME 10.9 SECS (9.5-12.5)
[2017-08-08] MEDS: AZITHROMYCIN 500 MG in D5W 250 ML IV SCH (13:44)
[2017-08-08] MEDS ORDERED: HEPARIN SODIUM,PORCINE 3000 UNITS/0.6 ML BOLUS IVP PRN (14:00)
[2017-08-08] MEDS ORDERED: HEPARIN SODIUM,PORCINE 2000 UNITS/0.4 ML BOLUS IVP PRN (14:00)
[2017-08-08] MEDS ORDERED: VANCOMYCIN HCL 1,250 MG in D5W 250 ML IV SCH (14:00)
[2017-08-08] MEDS ORDERED: HEPARIN SODIUM,PORCINE 5000 UNITS/ML VIAL SUBCUT ONE (14:15)
[2017-08-08 14:25] VITALS: BP_SYST 131
[2017-08-08 16:30] VITALS: BP_SYST 130
[2017-08-08] MEDS: VANCOMYCIN HCL 1,250 MG in D5W 250 ML IV SCH (17:11)
[2017-08-08 20:00] VITALS: BP_SYST 135
[2017-08-09] VITALS: BP_SYST 143
[2017-08-09] MEDS: IPRATROPIUM BROM 0.5 MG/2.5 ML VIAL.NEB (ATROVENT) INH SCH ×3 (01:00→13:26)
[2017-08-09] MEDS: ALBUTEROL SULFATE 0.083% 2.5 MG/3 ML VIAL.NEB INH SCH ×3 (01:00→13:26)
[2017-08-09 04:00] VITALS: BP_SYST 133
[2017-08-09 06:46] LABS: THYROID STIMULATING HORMONE 0.3 uIu/mL (0.34-4.82)
[2017-08-09 06:52] LABS: TOTAL IRON BIND. CAPACITY 165 ug/dL (250-450)
[2017-08-09 07:00] LABS: BASOPHILS % (AUTO) 0.2 % (0.0-2.0); EOSINOPHILS % (AUTO) 0.1 % (0.0-4.0); HEMATOCRIT 22.2 % (36-54); HEMOGLOBIN 7.2 g/dL (14.0-18.0); LYMPHOCYTES # (AUTO) 0.3 K/uL (1.0-5.5); LYMPHOCYTES % (AUTO) 3.8 % (20.5-51.5); MEAN CORPUSCULAR HEMOGLOBIN 31 pg (27-31); MEAN CORPUSCULAR HGB CONC 33 % (32-36); MEAN CORPUSCULAR VOLUME 95 fL (79.0-98.0); MONOCYTES # (AUTO) 0.5 K/uL (0.0-1.0); MONOCYTES % (AUTO) 5.5 % (1.7-9.3); NEUTROPHILS % (AUTO) 90.4 % (40.0-70.0); PLATELET COUNT (AUTO) 151 K/uL (130-430); RED BLOOD CELL COUNT(AUTO) 2.33 MIL/uL (4.2-6.2); RED CELL DISTRIBUTION WIDTH 25.4 % (9.0-15.0); WHITE BLOOD COUNT (AUTO) 8.8 K/uL (4.8-10.8)
[2017-08-09 08:55] VITALS: BP_SYST 149
[2017-08-09] MEDS ORDERED: ACETAMINOPHEN 325 MG TABLET PO ONE (10:30)
[2017-08-09] MEDS ORDERED: LORATADINE 10 MG TABLET PO ONE (10:30)
[2017-08-09] MEDS ORDERED: DIPHENHYDRAMINE HCL 12.5 MG/5 ML UDC NG ONE (10:30)
[2017-08-09] MEDS: AZITHROMYCIN 500 MG in D5W 250 ML IV SCH (10:46)
[2017-08-09 12:28] VITALS: BP_SYST 139
[2017-08-09 16:43] VITALS: BP_SYST 127
[2017-08-09] MEDS: VANCOMYCIN HCL 1,250 MG in D5W 250 ML IV SCH (17:11)
[2017-08-09 18:00] VITALS: BP_SYST 125
[2017-08-10 11:27] LABS: FOLATE (FOLIC ACID) 11.5 ng/mL (>3.0)
== END 2017-08-09 19:37 | disposition home or self-care (01) | DRG 840 ==
LOC: SED 09:59 → STU 11:25 → SMU 08-09 12:06
PROVIDERS: ADMIT Internal Medicine Hospice and Palliative Medicine; ATTEND Internal Medicine Hospice and Palliative Medicine
PROC: 30233N1 Transfusion of Nonautologous Red Blood Cells into Peripheral Vein, Percutaneous Approach (ICD-10-PCS; principal; 2017-08-08)
PROC: 02HV33Z Insertion of Infusion Device into Superior Vena Cava, Percutaneous Approach (ICD-10-PCS; 2017-08-08)
DX: C90.00 Multiple myeloma not having achieved remission (principal); J15.212 Pneumonia due to Methicillin resistant Staphylococcus aureus; D64.9 Anemia, unspecified; J90 Pleural effusion, not elsewhere classified; I10 Essential (primary) hypertension; E78.5 Hyperlipidemia, unspecified; N40.0 Benign prostatic hyperplasia without lower urinary tract symptoms; Z87.891 Personal history of nicotine dependence; Z88.0 Allergy status to penicillin
CPT/HCPCS: 36415; 71010; 80053; 82607; 82728; 82746; 83540-TC; 83550-TC; 83615-TC; 83880; 84443-TC; 84484; 85025; 85379; 85384-TC; 85610-TC; 85730-TC; 86886; 86900; 86901; 86920; 87081; 93005; 94640; 99285; J0456; J1644; J3370; J7050; J7060; P9021